=== PATIENT | male | born 1950 | race Caucasian/White ===

== ENCOUNTER → 2016-10-25 | Outpatient (CLI) | payer MEDICARE, OTHER ==
[2014-09-21 14:30] VITALS: BP 163/79
[~2016-10-25] MED LIST: ACAR50TA PO; AMIO200T2 PO; AMLO10TA2 PO; GABA600T2 PO; HYDR25TA9 PO; INSU100V13 SQ; LISI-334 PO; LISI-338 PO; LOVA40TA2 PO; METF500T4 PO; PIOG45TA19 PO; TAMS0.4C2 PO; WARF10TA PO; WARF2TAB7 PO
--- NOTE | 2016-10-25 09:41 | RAD ---
APPROVED REPORT Patient Location: OUT-PATIENT Risk Factors Hyperlipidemia Renal Artery Doppler Right Renal Artery Left Renal Arter y Proximal 60.6/19.3 cm/secProximal 58.7/12.7 cm/sec Mid 69.7/20.9 cm/secMid 66.0/18.0 cm/sec Distal 55.3/18.3 cm/secDistal 43.7/15.3 cm/sec Renal/Aorta Ratio 0.80Renal/Aorta Ratio 0.70 Prox. Resistive Index 0.68Prox. Resistive Index 0.78 Mid Resistive Index 0.70Mid Resistive Index 0.73 Distal Resistive Index 0.67Distal Resistive Index 0.65 Renal Measurements RightLeft Kidney Lqiwej89.3 cm cmKidney Ytyzcb18.3 cm cm Right Additional FindingsLeft Additional Findings Aortic Doppler VelocityWaveform Proximal Aorta 68.2 cm/sec Mid. Aorta 91.5 cm/sec Distal Aorta 91.5 cm/sec Findings On grayscale images of the abdominal aorta there is mild anthracotic plaque without any critical sten osis on limited imaging. Spectral waveforms do not demonstrate any obvious evidence of velocity acce leration. The right kidney on grayscale images measures to be at the upper limits of normal measuring approxima tely 11.3 cm in length. Spectral waveforms in the right renal artery are limited due to suboptimal i maging but do not show any obvious evidence of stenosis. Resistive indices are also within normal li mits. The left kidney appears to be mildly hypertrophied measuring approximately 12.3 cm. Bilateral cortical structures appear to be hypertrophied. The bilateral renal veins demonstrate normal spectral waveforms without any obvious abnormalities not ed. Critical Notification Critical Value: No <Conclusion> No evidence of renal artery stenosis. Suspect medical renal disease with bilateral cortical hypertrophy, clinical correlation recommended.
== END | disposition home or self-care (01) ==
LOC: US 07:23
PROVIDERS: ATTEND Internal Medicine Cardiovascular Disease
DX: E78.5 Hyperlipidemia, unspecified (principal); I70.0 Atherosclerosis of aorta; I25.10 Atherosclerotic heart disease of native coronary artery without angina pectoris; N28.81 Hypertrophy of kidney
CPT/HCPCS: 93975

== ENCOUNTER → 2016-11-07 | Outpatient (CLI) | payer MEDICARE, OTHER ==
[2014-09-21 14:30] VITALS: BP 163/79
[2016-11-12 11:15] LABS: ALDOSTERONE 11.4 ng/dL (0.0-30.0)
== END | disposition home or self-care (01) ==
LOC: LAB 10:02
PROVIDERS: ATTEND Internal Medicine Cardiovascular Disease
DX: I10 Essential (primary) hypertension (principal)
CPT/HCPCS: 36415; 82088; 84244

== ENCOUNTER 2017-01-17 03:18 | Observation (INO) | payer MEDICARE, OTHER ==
[~2017-01-17] VITALS: Ht 182.9 cm; Wt 93.4 kg
[2017-01-17 03:47] LABS: BASO % 1 % (0-3); EOS % 3 % (0-3); HEMATOCRIT 41.6 % (39.0-53.0); HEMOGLOBIN 13.7 g/dL (13.0-17.5); LYMPH # 1.4 x10^3/uL (1.0-4.8); LYMPH % 27 % (24-48); MEAN CORPUSCULAR HEMOGLOBIN 29 pg (25-35); MEAN CORPUSCULAR HGB CONC 33 g/dL (31-37); MEAN CORPUSCULAR VOLUME 89 fL (79-100); MONO % 9 % (0-9); NEUT % 61 % (31-73); PLATELET COUNT 182 x10^3/uL (140-400); RED BLOOD COUNT 4.69 x10^6/uL (4.30-5.70); RED CELL DISTRIBUTION WIDTH 13.7 % (11.5-14.5); WHITE BLOOD COUNT 5.1 x10^3/uL (4.0-11.0)
[2017-01-17 04:00] LABS: CALCIUM 9.6 mg/dL (8.5-10.1); GFR 74.8; POTASSIUM 3.7 mmol/L (3.5-5.1)
[2017-01-17] MEDS ORDERED: ASPIRIN CHEWABLE 81 MG TABLET. PO ONE (04:00)
[2017-01-17 04:06] LABS: DIRECT BILIRUBIN 0.1 mg/dL (0.0-0.2); TOTAL BILIRUBIN 0.4 mg/dL (0.2-1.0); TOTAL PROTEIN 7.4 g/dL (6.4-8.2)
--- NOTE | 2017-01-17 04:13 | PHYS DOC ---
Past Medical History Past Medical History: A-Fib, Diabetes-Type II Past Surgical History: No Surgical History Alcohol Use: None Drug Use: None Adult General Chief Complaint Chief Complaint: CHEST PAIN HPI HPI 66-year-old male presenting to the emergency department with chest pain. The pain is on the right anterior part of his chest. It started approximately 12 hours ago. It is a sharp shooting crampy pain. It is moderate nonradiating and without alleviating factors. He has a history of hypertension. He denies shortness of breath. Review of systems is negative for abdominal pain nausea vomiting. He denies diaphoresis cough fever or chills. All other review of systems is negative unless otherwise noted in history of present illness. Review of Systems Review of Systems SEE ABOVE. Current Medications Current Medications Current Medications Medications (Trade) Dose Ordered Sig/Meme Start Time Stop Time Status Last Admin Dose Admin Aspirin (Children'S Aspirin) 324 mg 1X ONCE 01/17/17 04:00 01/17/17 04:01 DC Allergies Allergies Allergies Coded Allergies Type Severity Reaction Last Updated Verified No Known Drug Allergies 09/21/14 No Physical Exam Physical Exam Constitutional: Well developed, well nourished, no acute distress, non-toxic appearance. HENT: Normocephalic, atraumatic, bilateral external ears normal, oropharynx moist, no oral exudates, nose normal. [] Eyes: PERRLA, EOMI, conjunctiva normal, no discharge. Neck: Normal range of motion, no tenderness, supple, no stridor. [] Cardiovascular:Heart rate regular rhythm, no murmur Lungs & Thorax: Bilateral breath sounds clear to auscultation [] Abdomen: Bowel sounds normal, soft, no tenderness, no masses, no pulsatile masses. [] Skin: Warm, dry, no erythema, no rash. [] Back: No tenderness, no CVA tenderness. [] Extremities: No tenderness, no cyanosis, no clubbing, ROM intact, no edema. Neurologic: Alert and oriented X 3, normal motor function, normal sensory function, no focal deficits noted. Psychologic: Affect normal, judgement normal, mood normal. [] Current Patient Data Vital Signs Vital Signs Date Time Temp Pulse Resp B/P Pulse Ox O2 Delivery O2 Flow Rate FiO2 01/17/17 03:20 97.0 82 20 197/88 99 Room Air 97.0 Lab Values Laboratory Tests Test 01/17/17 03:30 White Blood Count 5.1x10^3/uL (4.0-11.0) Red Blood Count 4.69x10^6/uL (4.30-5.70) Hemoglobin 13.7g/dL (13.0-17.5) Hematocrit 41.6% (39.0-53.0) Mean Corpuscular Volume 89fL (79-100) Mean Corpuscular Hemoglobin 29pg (25-35) Mean Corpuscular Hemoglobin Concent 33g/dL (31-37) Red Cell Distribution Width 13.7% (11.5-14.5) Platelet Count 182x10^3/uL (140-400) Neutrophils (%) (Auto) 61% (31-73) Lymphocytes (%) (Auto) 27% (24-48) Monocytes (%) (Auto) 9% (0-9) Eosinophils (%) (Auto) 3% (0-3) Basophils (%) (Auto) 1% (0-3) Neutrophils # (Auto) 3.1x10^3uL (1.8-7.7) Lymphocytes # (Auto) 1.4x10^3/uL (1.0-4.8) Monocytes # (Auto) 0.5x10^3/uL (0.0-1.1) Eosinophils # (Auto) 0.1x10^3/uL (0.0-0.7) Basophils # (Auto) 0.0x10^3/uL (0.0-0.2) Sodium Level 142mmol/L (136-145) Potassium Level 3.7mmol/L (3.5-5.1) Chloride Level 105mmol/L (98-107) Carbon Dioxide Level 27mmol/L (21-32) Anion Gap 10 (6-14) Blood Urea Nitrogen 15mg/dL (8-26) Creatinine 1.0mg/dL (0.7-1.3) Estimated GFR (Cockcroft-Gault) 74.8 Glucose Level 130mg/dL (70-99) H Calcium Level 9.6mg/dL (8.5-10.1) Total Bilirubin 0.4mg/dL (0.2-1.0) Direct Bilirubin 0.1mg/dL (0.0-0.2) Aspartate Amino Transferase (AST) 25U/L (15-37) Alanine Aminotransferase (ALT) 21U/L (16-63) Alkaline Phosphatase 75U/L (46-116) Troponin I Quantitative < 0.017ng/mL (0.000-0.055) UL-Amn-D-Type Natriuretic Peptide 650pg/mL (0-124) H Total Protein 7.4g/dL (6.4-8.2) Albumin 4.0g/dL (3.4-5.0) Lipase 118U/L (73-393) Laboratory Tests 01/17/17 03:30 Laboratory Tests 01/17/17 03:30 EKG EKG [] EKG shows irregularly irregular rhythm with a regular rate. Cycl[place] is leftward. ST segments are congruent. Intervals are within normal limits. Radiology/Procedures Radiology/Procedures [] Chest x-ray shows no obvious infiltrate or pneumothorax. Course & Med Decision Making Course & Med Decision Making Pertinent Labs and Imaging studies reviewed. (See chart for details) [] 66-year-old male presenting to the emergency department today with chest pain. EKG shows ST segments are congruent. Vital signs show afebrile. Regular heart rate. Patient's blood pressure is elevated. Pertinent physical exam shows a normal physical exam. X-ray unremarkable. Blood work obtained. Initial workup unremarkable. The patient was then admitted to our hospital for further evaluation workup and care. Cardiology consultation was placed. Dragon Disclaimer Dragon Disclaimer This electronic medical record was generated, in whole or in part, using a voice recognition dictation system. Departure Departure Impression: Primary Impression: Chest pain Disposition: ADMITTED INPATIENT Admitting Physician: Po Aranda Condition: STABLE Referrals: Lacy ARANDA MD (PCP) KIERAN OLIVAREZ MD Jan 17, 2017 04:13
[2017-01-17] MEDS ORDERED: NITROGLYCERIN SUBLINGUAL 0.4 MG BOTTLE OF 25. SL PRN (04:30)
[2017-01-17] MEDS ORDERED: ONDANSETRON PF 4 MG/2 ML VIAL. IV PRN (04:30)
[2017-01-17] MEDS ORDERED: hydrALAZINE 20 MG/ML VIAL. IVP ONE (05:00)
--- NOTE | 2017-01-17 06:36 | EKG ---
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
[2017-01-17 06:38] VITALS: BP 136/80
[2017-01-17 07:00] VITALS: BP 136/76
--- NOTE | 2017-01-17 07:21 | RAD ---
EXAM: Chest, single view. HISTORY: Chest pain. COMPARISON: None. FINDINGS: A frontal view of the chest is obtained. There is no infiltrate, effusion or pneumothorax. The heart is normal in size. IMPRESSION: No acute pulmonary finding.
[2017-01-17] MEDS ORDERED: LISI40TA PO (07:53)
[2017-01-17] MEDS ORDERED: HYDR100T24 PO (07:53)
[2017-01-17] MEDS ORDERED: WARF4TAB PO (07:53)
[2017-01-17] MEDS ORDERED: GABA-586 PO (07:53)
[2017-01-17] MEDS ORDERED: CHOL10003 PO (07:53)
--- NOTE | 2017-01-17 08:45 | PDOC2 ---
EDGARD PERKINS AVIONICS SAFETY INSPECTOR 01/17/17 0845: CARDIAC CONSULT DATE OF CONSULT Date of Consult DATE: 01/17/17 TIME: 08:33 REASON FOR CONSULT Reason for Consult: chest pain rule out REFERRING PHYSICIAN Referring Physician: Marianela SOURCE Source: Chart review, Patient HISTORY OF PRESENT ILLNESS HISTORY OF PRESENT ILLNESS This is a pleasant 66 yo male admitted for complains of chest pain. Reports of right lower chest pain throbbing and nagging in behavior and exacerbated by palpation. With this ti made it a little hard to take deep breath. There was some discomfort when I pressed on his RUQ but mainly points to right lower rib cage area. There was no associated SOA, RIVERO, no intolerance with activity and he actually walk using the treadmill for 2 miles almost everyday without difficulty. Denies any palpitations, nausea, dizziness and verbalized compliance with his medications. Denies any falls, recent injury, or frequent heartburn but he did work on his boat on Saturday and was tugging on the cables for his boat which by tension weighs about 100 pounds. His discomfort started Saturday and intensified Saturday which made him go to ED. right cp sharp PAST MEDICAL HISTORY Cardiovascular: AFIB (with cardioversion 2013), HTN, Hyperlipidemia, Other ( bradycardia) Pulmonary: Other (SHANA with CPAP) CENTRAL NERVOUS SYSTEM: Periperal neuropathy, TIA GI: No pertinent hx Heme/Onc: No pertinent hx Hepatobiliary: No pertinent hx Psych: No pertinent hx Musculoskeletal: Osteoarthritis Renal/: Chronic renal insuff (CKD2), Benign prostatic enlarg., Other (ED) Endocrine: Diabetes (2) PAST SURGICAL HISTORY Past Surgical History: No pertinent history FAMILY HISTORY Family History: Other (AFIB- Father, uncle, and brothers) SOCIAL HISTORY Smoke: No (quit) ALCOHOL: none Drugs: None Lives: with Family CURRENT MEDICATIONS CURRENT MEDICATIONS Current Medications Medications (Trade) Dose Ordered Sig/Meme Route PRN Reason Start Time Stop Time Status Last Admin Dose Admin Aspirin (Children'S Aspirin) 324 mg 1X ONCE PO 01/17/17 04:00 01/17/17 04:01 DC 01/17/17 05:25 Nitroglycerin (Nitrostat) 0.4 mg PRN Q5MIN PRN SL CHEST PAIN 01/17/17 04:30 01/18/17 04:29 01/17/17 05:25 ALLERGIES ALLERGIES: Coded Allergies: No Known Drug Allergies (Unverified , 09/21/14) ROS Review of System 14 point ROS evaluated with pertinent positives noted per HPI PHYSICAL EXAM General: Alert, Oriented X3, Cooperative, No acute distress HEENT: Atraumatic, Mucous membr. moist/pink Lungs: Clear to auscultation, Normal air movement Heart: Normal S1, Normal S2, Other (2/6 systolic murmur to LLS Border) Abdomen: Soft, Other (RUQ tenderness; right lower rib cage pain with palpation) Extremities: No cyanosis, No edema Skin: No breakdown, No significant lesion Neuro: Normal speech, Sensation intact Psych/Mental Status: Mental status NL, Mood NL MUSCULOSKELETAL: Osteoarthritic changes both hands VITALS VITALS Vital Signs Date Time Temp Pulse Resp B/P Pulse Ox O2 Delivery O2 Flow Rate FiO2 01/17/17 07:00 97.5 100 18 136/76 97 Room Air 97.5 LABS Lab: Laboratory Tests Test 01/17/17 03:30 White Blood Count 5.1x10^3/uL (4.0-11.0) Red Blood Count 4.69x10^6/uL (4.30-5.70) Hemoglobin 13.7g/dL (13.0-17.5) Hematocrit 41.6% (39.0-53.0) Mean Corpuscular Volume 89fL (79-100) Mean Corpuscular Hemoglobin 29pg (25-35) Mean Corpuscular Hemoglobin Concent 33g/dL (31-37) Red Cell Distribution Width 13.7% (11.5-14.5) Platelet Count 182x10^3/uL (140-400) Neutrophils (%) (Auto) 61% (31-73) Lymphocytes (%) (Auto) 27% (24-48) Monocytes (%) (Auto) 9% (0-9) Eosinophils (%) (Auto) 3% (0-3) Basophils (%) (Auto) 1% (0-3) Neutrophils # (Auto) 3.1x10^3uL (1.8-7.7) Lymphocytes # (Auto) 1.4x10^3/uL (1.0-4.8) Monocytes # (Auto) 0.5x10^3/uL (0.0-1.1) Eosinophils # (Auto) 0.1x10^3/uL (0.0-0.7) Basophils # (Auto) 0.0x10^3/uL (0.0-0.2) Sodium Level 142mmol/L (136-145) Potassium Level 3.7mmol/L (3.5-5.1) Chloride Level 105mmol/L (98-107) Carbon Dioxide Level 27mmol/L (21-32) Anion Gap 10 (6-14) Blood Urea Nitrogen 15mg/dL (8-26) Creatinine 1.0mg/dL (0.7-1.3) Estimated GFR (Cockcroft-Gault) 74.8 Glucose Level 130mg/dL (70-99) Calcium Level 9.6mg/dL (8.5-10.1) Total Bilirubin 0.4mg/dL (0.2-1.0) Direct Bilirubin 0.1mg/dL (0.0-0.2) Aspartate Amino Transf (AST/SGOT) 25U/L (15-37) Alanine Aminotransferase (ALT/SGPT) 21U/L (16-63) Alkaline Phosphatase 75U/L (46-116) Troponin I Quantitative < 0.017ng/mL (0.000-0.055) RU-Myu-I-Type Natriuretic Peptide 650pg/mL (0-124) Total Protein 7.4g/dL (6.4-8.2) Albumin 4.0g/dL (3.4-5.0) Lipase 118U/L (73-393) STRESS TEST STRESS TEST Conclusion 1. No evidence of significant ischemia or previous smoker infarction appreciated. 2. Ejection fraction calculated to be 64% with normal wall motion on gated SPECT images. 3. Normal nuclear imaging scan. DATE: 08/20/14 1443 ASSESSMENT/PLAN ASSESSMENT/PLAN 1. Atypical CP: Reproducible. Troponin series normal. EKG AFIB no acute changes.. Doubt ACS, likely MSK vs GI. Prior 100 lb pulling of boat cable. 2. Chronic AFIB cardioversion in the past 2013. Refused ablation before. Intolerance to rate controlling medications due to bradycardia. Currently rate controlled. 3. Accelerated HTN: now controlled, received x1 NTG in ED 4. HLP: on pravastatin at home 5. DM2 with insulin therapy controlled last A1C 6.1 6. SHANA/CPAP 7. Chronic anticoagulation with coumadin 8. CKD2 Recommendations 1. TTE today 2. GB sono pending per PCP 3. Resume secondary prevention measures. 4. OAC per PCP 5. No AV archie blocking agents due to rate intolerance. Problems: ROMELIA ROACH MD 01/18/17 0745: CARDIAC CONSULT ALLERGIES ALLERGIES: Coded Allergies: No Known Drug Allergies (Unverified , 09/21/14) ASSESSMENT/PLAN ASSESSMENT/PLAN Patient seen and examined 01/17/17. Agree with SYSTEMS SOFTWARE MANAGER's assessment and plan. Chest pain atypical, reproducible to palpation and most probably musculoskeletal. Myocardial infarction ruled out. 2-D echo showed normal LV systolic function without any wall motion abnormalities. Chest pain most probably GI in etiology. Permanent atrial fibrillation rate controlled. Blood pressure better controlled since admission. Continue current medical regimen. Thank you for your consultation. Problems: EDGARD PERKINS APRN Jan 17, 2017 08:45 ROMELIA ROACH MD Jan 18, 2017 07:45
[2017-01-17] MEDS ORDERED: PRAV40TA2 PO (09:26)
--- NOTE | 2017-01-17 09:32 | PDOC ---
PROGRESS NOTES Subjective Subjective Patient reports some mild R UQ pain persists, not as bad as at admission. Objective Objective Vital Signs Date Time Temp Pulse Resp B/P Pulse Ox O2 Delivery O2 Flow Rate FiO2 01/17/17 07:00 97.5 100 18 136/76 97 Room Air 97.5 Physical Exam Abdomen: Normal bowel sounds, Soft, Other (mild R UQ TTP without guarding or rebound) Heart: Other (irregularly irregular) Extremities: No edema General: Alert, Oriented X3, No acute distress Lungs: Clear to auscultation, Other (mild TTP over right anterior lower chest wall) Assessment Assessment Problems Medical Problems: (1) Chest pain Status: Acute Plan Plan of Care 1. Atypical chest pain - patient reports his pain has consistently been in the R UQ. Patient without history of CAD, apparently had normal stress test in 2013. Exercises regularly without chest pains. Will order abdominal U/S. Cardiology has also been consulted. 2. chronic afib - stable, INR pending. Continue meds as per Cardiology. 3. HTN - patient reports this has recently been fairly well controlled with his present meds. BP was quite elevated in ER, much better now. Resume home meds and follow. 4. DM2 - well controlled with recent A1C of 6.1 Continue ADA diet and home meds. Comment Review of Relevant I have reviewed the following items jammie (where applicable) has been applied. Labs Laboratory Tests Test 01/17/17 03:30 White Blood Count 5.1x10^3/uL (4.0-11.0) Red Blood Count 4.69x10^6/uL (4.30-5.70) Hemoglobin 13.7g/dL (13.0-17.5) Hematocrit 41.6% (39.0-53.0) Mean Corpuscular Volume 89fL (79-100) Mean Corpuscular Hemoglobin 29pg (25-35) Mean Corpuscular Hemoglobin Concent 33g/dL (31-37) Red Cell Distribution Width 13.7% (11.5-14.5) Platelet Count 182x10^3/uL (140-400) Neutrophils (%) (Auto) 61% (31-73) Lymphocytes (%) (Auto) 27% (24-48) Monocytes (%) (Auto) 9% (0-9) Eosinophils (%) (Auto) 3% (0-3) Basophils (%) (Auto) 1% (0-3) Neutrophils # (Auto) 3.1x10^3uL (1.8-7.7) Lymphocytes # (Auto) 1.4x10^3/uL (1.0-4.8) Monocytes # (Auto) 0.5x10^3/uL (0.0-1.1) Eosinophils # (Auto) 0.1x10^3/uL (0.0-0.7) Basophils # (Auto) 0.0x10^3/uL (0.0-0.2) Sodium Level 142mmol/L (136-145) Potassium Level 3.7mmol/L (3.5-5.1) Chloride Level 105mmol/L (98-107) Carbon Dioxide Level 27mmol/L (21-32) Anion Gap 10 (6-14) Blood Urea Nitrogen 15mg/dL (8-26) Creatinine 1.0mg/dL (0.7-1.3) Estimated GFR (Cockcroft-Gault) 74.8 Glucose Level 130mg/dL (70-99) Calcium Level 9.6mg/dL (8.5-10.1) Total Bilirubin 0.4mg/dL (0.2-1.0) Direct Bilirubin 0.1mg/dL (0.0-0.2) Aspartate Amino Transf (AST/SGOT) 25U/L (15-37) Alanine Aminotransferase (ALT/SGPT) 21U/L (16-63) Alkaline Phosphatase 75U/L (46-116) Troponin I Quantitative < 0.017ng/mL (0.000-0.055) KQ-Udf-I-Type Natriuretic Peptide 650pg/mL (0-124) Total Protein 7.4g/dL (6.4-8.2) Albumin 4.0g/dL (3.4-5.0) Lipase 118U/L (73-393) Laboratory Tests Test 01/17/17 03:30 White Blood Count 5.1x10^3/uL (4.0-11.0) Red Blood Count 4.69x10^6/uL (4.30-5.70) Hemoglobin 13.7g/dL (13.0-17.5) Hematocrit 41.6% (39.0-53.0) Mean Corpuscular Volume 89fL (79-100) Mean Corpuscular Hemoglobin 29pg (25-35) Mean Corpuscular Hemoglobin Concent 33g/dL (31-37) Red Cell Distribution Width 13.7% (11.5-14.5) Platelet Count 182x10^3/uL (140-400) Neutrophils (%) (Auto) 61% (31-73) Lymphocytes (%) (Auto) 27% (24-48) Monocytes (%) (Auto) 9% (0-9) Eosinophils (%) (Auto) 3% (0-3) Basophils (%) (Auto) 1% (0-3) Neutrophils # (Auto) 3.1x10^3uL (1.8-7.7) Lymphocytes # (Auto) 1.4x10^3/uL (1.0-4.8) Monocytes # (Auto) 0.5x10^3/uL (0.0-1.1) Eosinophils # (Auto) 0.1x10^3/uL (0.0-0.7) Basophils # (Auto) 0.0x10^3/uL (0.0-0.2) Sodium Level 142mmol/L (136-145) Potassium Level 3.7mmol/L (3.5-5.1) Chloride Level 105mmol/L (98-107) Carbon Dioxide Level 27mmol/L (21-32) Anion Gap 10 (6-14) Blood Urea Nitrogen 15mg/dL (8-26) Creatinine 1.0mg/dL (0.7-1.3) Estimated GFR (Cockcroft-Gault) 74.8 Glucose Level 130mg/dL (70-99) Calcium Level 9.6mg/dL (8.5-10.1) Total Bilirubin 0.4mg/dL (0.2-1.0) Direct Bilirubin 0.1mg/dL (0.0-0.2) Aspartate Amino Transf (AST/SGOT) 25U/L (15-37) Alanine Aminotransferase (ALT/SGPT) 21U/L (16-63) Alkaline Phosphatase 75U/L (46-116) Troponin I Quantitative < 0.017ng/mL (0.000-0.055) HS-Dsy-H-Type Natriuretic Peptide 650pg/mL (0-124) Total Protein 7.4g/dL (6.4-8.2) Albumin 4.0g/dL (3.4-5.0) Lipase 118U/L (73-393) Medications Current Medications Aspirin (Children'S Aspirin) 324 mg 1X ONCE PO Last administered on 01/17/17 05:25; Start 01/17/17 at 04:00; Stop 01/17/17 at 04:01; Status DC Ondansetron HCl (Zofran) 4 mg PRN Q8HRS PRN IV NAUSEA/VOMITING; Start 01/17/17 at 04:30; Stop 01/18/17 at 04:29 Morphine Sulfate 2 mg PRN Q2HR PRN IV SEVERE PAIN; Start 01/17/17 at 04:30; Stop 01/18/17 at 04:29 Nitroglycerin (Nitrostat) 0.4 mg PRN Q5MIN PRN SL CHEST PAIN Last administered on 01/17/17 05:25; Start 01/17/17 at 04:30; Stop 01/18/17 at 04:29 Hydralazine HCl (Apresoline) 10 mg 1X ONCE IVP ; Start 01/17/17 at 05:00; Stop 01/17/17 at 05:01; Status DC Active Scripts Active Pravastatin Sodium 40 Mg Tablet 1 Tab PO QHS Reported Vitamin D3 (Cholecalciferol (Vitamin D3)) 1,000 Unit Tablet 1,000 Unit PO Hydralazine Hcl 100 Mg Tablet 1 Tab PO TID Gabapentin 300 Mg Capsule 300 Mg PO TID Coumadin (Warfarin Sodium) 4 Mg Tablet 2 Tab PO DAILY Lisinopril 40 Mg Tablet 1 Tab PO DAILY Acarbose 50 Mg Tablet 50 Mg PO TIDBFRMEAL Levemir (Insulin Detemir) 100 Unit/1 Ml Vial 30 Unit SQ HS Tamsulosin Hcl 0.4 Mg Cap.er.24h 0.4 Mg PO HS Metformin Hcl 500 Mg Tablet 500 Mg PO TIDWMEALS Amlodipine Besylate 10 Mg Tablet 10 Mg PO DAILY Vitals/I & O Vital Sign - Last 24 Hours 01/17/17 01/17/17 01/17/17 01/17/17 03:20 03:22 03:42 04:02 Temp 97.0 97.0 Pulse 82 71 82 71 Resp 20 20 20 20 B/P 197/88 197/98 186/107 161/91 Pulse Ox 99 98 98 96 O2 Delivery Room Air Room Air Room Air Room Air 01/17/17 01/17/17 01/17/17 01/17/17 04:22 04:42 05:00 05:02 Pulse 77 71 73 73 Resp 20 20 20 B/P 160/101 174/103 136/80 166/99 Pulse Ox 95 95 95 O2 Delivery Room Air Room Air Room Air 01/17/17 01/17/17 01/17/17 01/17/17 05:22 05:25 05:32 06:10 Pulse 52 61 73 Resp 20 20 B/P 175/101 175/101 136/80 Pulse Ox 96 94 O2 Delivery Room Air Room Air Room Air 01/17/17 01/17/17 06:38 07:00 Temp 97.0 97.5 97.0 97.5 Pulse 73 100 Resp 20 18 B/P 136/80 136/76 Pulse Ox 94 97 O2 Delivery Room Air Room Air NILAY MACARIO MD Jan 17, 2017 09:32
[2017-01-17 10:44] LABS: INR 1.9 (0.8-1.1); PROTHROMBIN TIME PATIENT 20.9 SEC (11.7-14.0)
[2017-01-17 11:00] VITALS: BP 179/96
--- NOTE | 2017-01-17 11:01 | HP ---
ADMIT DATE: 01/17/2017 CHIEF COMPLAINT: Right-sided chest pain. HISTORY OF PRESENT ILLNESS: The patient is a 66-year-old male with a history of chronic atrial fibrillation who presented to the Emergency Room with the above complaint. He reported some mild pain in the area for several days previously. However, on the night of admission, it became much more severe. It was a sharp pain and there was some shortness of breath associated with it. He was unable to sleep due to his discomfort. When he presented to the Emergency Room, he was found to have an initial blood pressure of 197/88. EKG showed the atrial fibrillation, but no acute ischemic changes. Initial troponin was within normal limits and the patient was admitted for further treatment. PAST MEDICAL HISTORY: Chronic atrial fibrillation, hypertension, diabetes mellitus type 2, hyperlipidemia, obstructive sleep apnea on CPAP and BPH. PAST SURGICAL HISTORY: None. ALLERGIES: The patient has no known drug allergies. HOME MEDICATIONS: Acarbose 50 mg t.i.d. a.c., amlodipine 10 mg daily, vitamin D3 1000 international units daily, gabapentin 300 mg at bedtime, hydralazine 100 mg t.i.d., Levemir insulin 30 units at bedtime, lisinopril 40 mg daily, metformin 500 mg t.i.d., pravastatin 40 mg at bedtime, Flomax 0.4 mg daily and Coumadin 4 mg tablets 2 tablets daily. FAMILY HISTORY: Noncontributory. SOCIAL HISTORY: The patient is and lives at home with his . He is retired. He does not smoke cigarettes. REVIEW OF SYSTEMS: The patient states that he has been feeling well recently. He denies fever or chills. He denies cough or shortness of air. He denies other episodes of chest pain. He reports that he was working on his boat recently and may have strained his muscles with this. He exercises almost daily and denies any chest pain with this. He denies epigastric or lower abdominal pain or problems with his bowels. He is very compliant with his medications, taking them all as advised. He denies recent low blood sugars. Recent A1c in our office was 6.1. PHYSICAL EXAMINATION: GENERAL: The patient is alert and oriented x 3, resting comfortably in bed in no acute distress. HEENT: PERRL, EOMI, sclerae clear. Oropharynx: Mucous membranes moist. NECK: Supple, without lymphadenopathy. CHEST: Clear to auscultation with normal respiratory effort and good breath sounds throughout. There is mild tenderness to palpation on the right anterior chest wall. CARDIOVASCULAR: Irregularly irregular, no murmur. ABDOMEN: Soft, normoactive bowel sounds are present. There is mild tenderness to palpation in the right upper quadrant. EXTREMITIES: Without edema. ASSESSMENT AND PLAN: 1. Atypical chest pain. This has improved from admission per the patient's report. The patient does not have a history of coronary artery disease and reports he had a normal stress test in 2013. He is also able to exercise regularly without chest pain. This makes a noncardiac origin of the present pain more likely. Cardiology has been consulted and will consider further evaluation if warranted. An abdominal ultrasound has been ordered to rule out the gallbladder as a source of pain. 2. Chronic atrial fibrillation. This is stable. An INR is pending. We will continue his present medications and adjust the Coumadin as indicated. 3. Hypertension. The patient reports this has been fairly well controlled with his present medications. His hydralazine was recently increased by Dr. Quach when his blood pressure was a little elevated at an office visit. We will continue his home medications and follow his response here. 4. Diabetes mellitus type 2. This is very well controlled. Continue ADA diet and home medications. NILAY MACARIO MD DR: ROSE MARIE/derrick JOB#: [id number] / [id number] PAULO
[2017-01-17] MEDS: ACARBOSE 50 MG TABLET PO SCH ×2 (11:30→16:30)
[2017-01-17] MEDS: AMLODIPINE BESYLATE 10 MG TABLET. PO SCH (12:48)
[2017-01-17] MEDS: METFORMIN 500 MG TABLET. PO SCH ×2 (12:49→17:30)
[2017-01-17] MEDS: HYDRALAZINE 50 MG TABLET PO SCH ×3 (12:49→20:56)
[2017-01-17] MEDS: CHOLECALCIFEROL (VITAMIN D3) 1,000 UNIT TABLET PO SCH (12:49)
[2017-01-17] MEDS: LISINOPRIL 40 MG TABLET. PO SCH (12:50)
[2017-01-17] MEDS ORDERED: NON FORMULARY ITEM (Hydralazine Hcl 1 TAB) PO SCH (14:00)
--- NOTE | 2017-01-17 14:26 | CARD ---
APPROVED REPORT EXAM: Two-dimensional and M-mode echocardiogram with Doppler and color Doppler. Other Information Quality : Average Rhythm : Atrial Fibrillation INDICATION Atrial Fibrillation Chest Pain 2D DIMENSIONS RVDd3.3 (2.9-3.5cm)Left Atrium(2D)4.1 (1.6-4.0cm) IVSd1.2 (0.7-1.1cm)Aortic Root(2D)3.3 (2.0-3.7cm) LVDd3.9 (3.9-5.9cm)LVOT Diameter2.2 (1.8-2.4cm) PWd1.2 (0.7-1.1cm)LVDs2.9 (2.5-4.0cm) FS (%) 25.6 %SV34.1 ml LVEF(%)51.0 (>50%) Aortic Valve AoV Peak Jose David.136.4cm/sAoV VTI26.7cm AO Peak GR.7.4mmHgLVOT Peak Jose David.103.4cm/s AO Mean GR.4mmHgAVA (VMAX)2.81cm2 ARNAV (VTI)3.37ad8JP P 1/2 [id number] Mitral Valve MV E Ynievbdd938.1cm/sMV E Peak Gr.6mmHg MV DECEL [id number] A Velocity0.4cm/s MV E Mean Gr.2mmHgMV XBJ11dx E/A Nniuu521.8MVA (PHT)3.58cm2 Tricuspid Valve TR P. Mobhqtkk597im/sRAP [id number] TR Peak Gr.17jjZeWVUK11tqKp LEFT VENTRICLE The left ventricle is normal size. There is borderline concentric left ventricular hypertrophy. Left ventricle systolic function is normal. The Ejection Fraction is 50-55%. There is normal LV segmental wall motion. Unable to assess diastolic function due to a-fib. RIGHT VENTRICLE The right ventricle is normal size. The right ventricular systolic function is normal. ATRIA The left atrium is borderline dilated. The right atrium size is normal. The interatrial septum is int act with no evidence for an atrial septal defect or patent foramen ovale as noted on 2-D or Doppler i maging. AORTIC VALVE The aortic valve is mildly sclerotic. The aortic valve is trileaflet. Doppler and Color Flow revealed trace to mild aortic regurgitation. There is no significant aortic valvular stenosis. MITRAL VALVE Mitral annular calcification is borderline. The mitral valve leaflets are calcified. There is no mitr al valve stenosis. Doppler and Color Flow revealed trace to mild mitral regurgitation. TRICUSPID VALVE The tricuspid valve is normal in structure and function. Doppler and Color Flow revealed mild tricusp id regurgitation. There is no tricuspid valve stenosis. PULMONIC VALVE The pulmonic valve is not well visualized. Doppler and Color Flow revealed trace pulmonic valvular re gurgitation. There is no pulmonic valvular stenosis. GREAT VESSELS The aortic root is normal in size. Pulmonary vein flow not well visualized. The IVC is normal in size and collapses >50% with inspiration. PERICARDIAL EFFUSION There is no evidence of significant pericardial effusion. Critical Notification Critical Value: No <Conclusion> Left ventricle systolic function is normal. The Ejection Fraction is 50-55%. There is normal LV segmental wall motion. The left atrium is borderline dilated. Trace to mild aortic regurgitation. Trace to mild mitral regurgitation. Mild tricuspid regurgitation. There is no evidence of significant pericardial effusion.
--- NOTE | 2017-01-17 14:37 | RAD ---
EXAM: Abdomen sonogram. HISTORY: Right upper quadrant pain. TECHNIQUE: Sonographic imaging of the abdomen was performed. COMPARISON: None. FINDINGS: The liver is normal in size. There is hepatic steatosis. No focal hepatic lesion is seen. There is an 8 mm nonmobile echogenic lesion along the gallbladder wall, likely a polyp. The common bile duct is dilated, measuring 8 mm. There is a positive sonographic Aragon sign. The right kidney measures 10.3 cm atab-mm-eunw and the left kidney measures 12.1 cm [id number]-us-[id number]. No solid or cystic renal lesion is seen. There is no hydronephrosis. The pancreas is unremarkable. The spleen is enlarged, measuring 15.6 cm. The aorta and inferior vena cava are unremarkable. The urinary bladder is distended, with a volume of 1534 mL. IMPRESSION: 1. Hepatic steatosis. 2. 8 mm nonmobile echogenic lesion along the gallbladder likely due to a polyp. Follow-up can be performed to confirm stability. 3. Positive sonographic Aragon's sign. There is no gallbladder wall thickening or pericholecystic fluid versus cholecystitis. However, there is mild common bile duct dilatation. Correlate with biliary laboratory values to exclude a distal obstructing process. 4. Distended urinary bladder with a volume of 1534 mL.
[2017-01-17 15:00] VITALS: BP 158/85
[2017-01-17] MEDS ORDERED: WARFARIN 4 MG TABLET. PO SCH (16:00)
--- NOTE | 2017-01-17 16:39 | PDOC2 ---
GI CONSULT Reason For Consult: Gallbladder management HPI: HPI: 66 y/o male admitted w/ chest pain. Reports RUQ dull ache beginning 01/15/17 w/ o precipitating events. It improved that evening, although it was at first difficult for him to fall asleep. The next evening, it recurred w/ some radiation into chest, prompting ER eval. Cardiac etiology ruled out. US showed hepatic steatosis, probably GB polyp, + Aragon's sign, mild CBD dilation. Pain has improved but is still nagging. Denies aggravating or alleviating factors. Perhaps had a little nausea at one point, but no vomiting. Also denies reflux/heartburn, dysphagia, diarrhea, constipation, melena, change in appetite, or weight loss. Believes normal colonoscopy ~5 years ago. No previous EGD. No NSAID use. Dr. Nevarez has been consulted and Dr. Quach has ordered MRCP. PMH: PMH: A Fib w/ h/o cardioversion on Warfarin, HTN, HLD, bradycardia, SHANA on CPAP, peripheral neuropathy, TIA, OA, CKD, BPH, ED, DM FH: Family History: Other (A Fib) Social History: Smoke: No (quit) ALCOHOL: none Drugs: None ROS: GEN: Denies fevers, chills, sweats HEENT: Denies blurred vision, sore throat CV: +chest pain RESP: Denies shortness of air, cough GI: Per HPI : Denies hematuria, dysuria ENDO: Denies weight changes NEURO: Denies confusion, dizziness MSK: Denies weakness, joint pain/swelling SKIN: Denies jaundice, pruritus VItals: Vitals: Vital Signs Date Time Temp Pulse Resp B/P Pulse Ox O2 Delivery O2 Flow Rate FiO2 01/17/17 15:00 98.3 80 18 158/85 95 Room Air 98.3 Labs: Labs: Laboratory Tests Test 01/17/17 03:30 01/17/17 10:00 01/17/17 12:46 White Blood Count 5.1x10^3/uL (4.0-11.0) Red Blood Count 4.69x10^6/uL (4.30-5.70) Hemoglobin 13.7g/dL (13.0-17.5) Hematocrit 41.6% (39.0-53.0) Mean Corpuscular Volume 89fL (79-100) Mean Corpuscular Hemoglobin 29pg (25-35) Mean Corpuscular Hemoglobin Concent 33g/dL (31-37) Red Cell Distribution Width 13.7% (11.5-14.5) Platelet Count 182x10^3/uL (140-400) Neutrophils (%) (Auto) 61% (31-73) Lymphocytes (%) (Auto) 27% (24-48) Monocytes (%) (Auto) 9% (0-9) Eosinophils (%) (Auto) 3% (0-3) Basophils (%) (Auto) 1% (0-3) Neutrophils # (Auto) 3.1x10^3uL (1.8-7.7) Lymphocytes # (Auto) 1.4x10^3/uL (1.0-4.8) Monocytes # (Auto) 0.5x10^3/uL (0.0-1.1) Eosinophils # (Auto) 0.1x10^3/uL (0.0-0.7) Basophils # (Auto) 0.0x10^3/uL (0.0-0.2) Sodium Level 142mmol/L (136-145) Potassium Level 3.7mmol/L (3.5-5.1) Chloride Level 105mmol/L (98-107) Carbon Dioxide Level 27mmol/L (21-32) Anion Gap 10 (6-14) Blood Urea Nitrogen 15mg/dL (8-26) Creatinine 1.0mg/dL (0.7-1.3) Estimated GFR (Cockcroft-Gault) 74.8 Glucose Level 130mg/dL (70-99) Calcium Level 9.6mg/dL (8.5-10.1) Total Bilirubin 0.4mg/dL (0.2-1.0) Direct Bilirubin 0.1mg/dL (0.0-0.2) Aspartate Amino Transf (AST/SGOT) 25U/L (15-37) Alanine Aminotransferase (ALT/SGPT) 21U/L (16-63) Alkaline Phosphatase 75U/L (46-116) Troponin I Quantitative < 0.017ng/mL (0.000-0.055) < 0.017ng/mL (0.000-0.055) QU-Mzn-B-Type Natriuretic Peptide 650pg/mL (0-124) Total Protein 7.4g/dL (6.4-8.2) Albumin 4.0g/dL (3.4-5.0) Lipase 118U/L (73-393) Prothrombin Time 20.9SEC (11.7-14.0) Prothromb Time International Ratio 1.9 (0.8-1.1) Glucose (Fingerstick) 115mg/dL (70-99) Allergies: Coded Allergies: No Known Drug Allergies (Unverified , 09/21/14) Medications: Current Medications Medications (Trade) Dose Ordered Sig/Meme Route PRN Reason Start Time Stop Time Status Last Admin Dose Admin Aspirin (Children'S Aspirin) 324 mg 1X ONCE PO 01/17/17 04:00 01/17/17 04:01 DC 01/17/17 05:25 Nitroglycerin (Nitrostat) 0.4 mg PRN Q5MIN PRN SL CHEST PAIN 01/17/17 04:30 01/18/17 04:29 01/17/17 05:25 Vitamin D (Vitamin D3) 1,000 unit DAILY PO 01/17/17 10:00 01/17/17 12:49 Lisinopril (Prinivil) 40 mg DAILY PO 01/17/17 10:00 01/17/17 12:50 Metformin HCl (Glucophage) 500 mg TIDWMEALS PO 01/17/17 12:00 01/17/17 12:49 Amlodipine Besylate (Norvasc) 10 mg DAILY PO 01/17/17 10:00 01/17/17 12:48 Hydralazine HCl (Apresoline) 100 mg TID PO 01/17/17 10:00 01/17/17 12:49 Warfarin Sodium (Coumadin Per Physician) 1 each PRN DAILY PRN MC SEE COMMENTS 01/17/17 11:00 01/17/17 11:10 Imaging: Imaging: CXR IMPRESSION: No acute pulmonary finding. Echocardiogram <Conclusion> Left ventricle systolic function is normal. The Ejection Fraction is 50-55%. There is normal LV segmental wall motion. The left atrium is borderline dilated. Trace to mild aortic regurgitation. Trace to mild mitral regurgitation. Mild tricuspid regurgitation. There is no evidence of significant pericardial effusion. Abd US IMPRESSION: 1. Hepatic steatosis. 2. 8 mm nonmobile echogenic lesion along the gallbladder likely due to a polyp. Follow-up can be performed to confirm stability. 3. Positive sonographic Aragon's sign. There is no gallbladder wall thickening or pericholecystic fluid versus cholecystitis. However, there is mild common bile duct dilatation. Correlate with biliary laboratory values to exclude a distal obstructing process. 4. Distended urinary bladder with a volume of 1534 mL. PE: GEN: NAD HEENT: Atraumatic, PERRL LUNGS: CTAB anteriorly HEART: RRR +murm ABD: NABS, S/ND, vague RUQ discomfort EXTREMITY: No edema SKIN: No rashes, no jaundice NEURO/PSYCH: A & O 3 A/P: A/P: RUQ pain - improved -onset 01/15 w/o precipitating events, no aggravating or alleviating factors Abnormal abd US -probably GB polyp, mild CBD dilation -MRCP ordered, sug consulted CRC screen -recalls previously normal colonoscopy Anti-coagulated w/ Warfarin -- D/w Dr. Oconnor. Await MRCP and surg recs. ELYSSA PLAZA Jan 17, 2017 16:39
--- NOTE | 2017-01-17 17:55 | PDOC2 ---
CONSULT Date of Consult Date of Consult DATE: 01/17/17 TIME: 17:50 Reason for Consult Reason for Consult: Abd pain and abnormal U/S Referring Physician Referring Physician: Identification/Chief Complaint Chief Complaint Right side chest and abdominal pain Source Source: Patient History of Present Illness Reason for Visit: 66 yo male admitted to the hospital with right side chest pain and known history of AFib. Cardiac workup negative but U/S RUQ showing polyp in gallbladder and positive Aragon's sign. Past Medical History Cardiovascular: AFIB (with cardioversion 2013), HTN, Hyperlipidemia, Other ( bradycardia) Pulmonary: Other (SHANA with CPAP) CENTRAL NERVOUS SYSTEM: Periperal neuropathy, TIA GI: No pertinent hx Heme/Onc: No pertinent hx Hepatobiliary: No pertinent hx Psych: No pertinent hx Musculoskeletal: Osteoarthritis Renal/: Chronic renal insuff (CKD2), Benign prostatic enlarg., Other (ED) Endocrine: Diabetes (2) Past Surgical History Past Surgical History: No pertinent history Family History Family History: Other (AFIB- Father, uncle, and brothers) Social History No (quit) ALCOHOL: none Drugs: None Lives: with Family Current Problem List Problem List Problems Medical Problems: (1) Chest pain Status: Acute Current Medications Current Medications Current Medications Aspirin (Children'S Aspirin) 324 mg 1X ONCE PO Last administered on 01/17/17 05:25; Start 01/17/17 at 04:00; Stop 01/17/17 at 04:01; Status DC Ondansetron HCl (Zofran) 4 mg PRN Q8HRS PRN IV NAUSEA/VOMITING; Start 01/17/17 at 04:30; Stop 01/18/17 at 04:29 Morphine Sulfate 2 mg PRN Q2HR PRN IV SEVERE PAIN; Start 01/17/17 at 04:30; Stop 01/18/17 at 04:29 Nitroglycerin (Nitrostat) 0.4 mg PRN Q5MIN PRN SL CHEST PAIN Last administered on 01/17/17 05:25; Start 01/17/17 at 04:30; Stop 01/18/17 at 04:29 Hydralazine HCl (Apresoline) 10 mg 1X ONCE IVP ; Start 01/17/17 at 05:00; Stop 01/17/17 at 05:01; Status DC Acarbose (Precose) 50 mg TIDBFRMEAL PO ; Start 01/17/17 at 11:30 Amlodipine Besylate (Norvasc) 10 mg DAILY PO ; Start 01/18/17 at 09:00; Stop at 09:00; Status DC Vitamin D (Vitamin D3) 1,000 unit DAILY PO Last administered on 01/17/17 12:49 ; Start 01/17/17 at 10:00 Gabapentin (Neurontin) 300 mg HS PO ; Start 01/17/17 at 21:00 Lisinopril (Prinivil) 40 mg DAILY PO Last administered on 01/17/17 12:50; Start 01/17/17 at 10:00 Metformin HCl (Glucophage) 500 mg TIDWMEALS PO Last administered on 01/17/17 17:30; Start 01/17/17 at 12:00 Tamsulosin HCl (Flomax) 0.4 mg HS PO ; Start 01/17/17 at 21:00 Warfarin Sodium (Coumadin) 8 mg DAILY16 PO ; Start 01/17/17 at 16:00; Stop 01/17 at 16:00; Status DC Non-Formulary Medication 1 tab TID PO ; Start 01/17/17 at 14:00; Stop 01/17/17 at 14:00; Status DC Insulin Detemir (Levemir) 30 units QHS SQ ; Start 01/17/17 at 21:00 Amlodipine Besylate (Norvasc) 10 mg DAILY PO Last administered on 01/17/17 12: 48; Start 01/17/17 at 10:00 Hydralazine HCl (Apresoline) 100 mg TID PO Last administered on 01/17/17 17:31 ; Start 01/17/17 at 10:00 Warfarin Sodium 1 each 1 each PRN DAILY PRN MC SEE COMMENTS Last administered on 01/17/17 11:10; Start 01/17/17 at 11:00 Cefazolin Sodium/ Dextrose (Ancef 2gm Premix) 50 ml @ 100 mls/hr 1X PREOP IV ; Start 01/18/17 at 07:00; Stop 01/18/17 at 18:00 Ondansetron HCl (Zofran) 0.4 mg PRN Q6HRS PRN IV NAUSEA/VOMITING; Start at 07:00; Stop 01/19/17 at 06:59 Fentanyl Citrate (Fentanyl 2ml Vial) 25 mcg PRN Q5MIN PRN IV MILD PAIN; Start 01/18/17 at 07:00; Stop 01/19/17 at 06:59 Fentanyl Citrate (Fentanyl 2ml Vial) 50 mcg PRN Q5MIN PRN IV MODERATE PAIN; Start 01/18/17 at 07:00; Stop 01/19/17 at 06:59 Morphine Sulfate 1 mg 1 mg PRN Q10MIN PRN IV SEVERE PAIN; Start 01/18/17 at 07: 00; Stop 01/19/17 at 06:59 Lactated Ringer's (Iv Lactated Ringers) 1,000 ml @ 30 mls/hr Q24H IV ; Start at 07:00; Stop 01/18/17 at 18:59 Lidocaine HCl 2 ml PRN 1X PRN ID PRIOR TO IV START; Start 01/18/17 at 07:00; Stop 01/19/17 at 06:59 Hydromorphone HCl (Dilaudid) 0.5 mg PRN Q10MIN PRN IV SEV PAIN, Second choice; Start 01/18/17 at 07:00; Stop 01/19/17 at 06:59 Prochlorperazine Edisylate (Compazine) 5 mg PACU PRN PRN IV NAUSEA, MRX1; Start 01/18/17 at 07:00; Stop 01/19/17 at 06:59 Active Scripts Active Pravastatin Sodium 40 Mg Tablet 1 Tab PO QHS Reported Vitamin D3 (Cholecalciferol (Vitamin D3)) 1,000 Unit Tablet 1,000 Unit PO Hydralazine Hcl 100 Mg Tablet 1 Tab PO TID Gabapentin 300 Mg Capsule 300 Mg PO TID Coumadin (Warfarin Sodium) 4 Mg Tablet 2 Tab PO DAILY Lisinopril 40 Mg Tablet 1 Tab PO DAILY Acarbose 50 Mg Tablet 50 Mg PO TIDBFRMEAL Levemir (Insulin Detemir) 100 Unit/1 Ml Vial 30 Unit SQ HS Tamsulosin Hcl 0.4 Mg Cap.er.24h 0.4 Mg PO HS Metformin Hcl 500 Mg Tablet 500 Mg PO TIDWMEALS Amlodipine Besylate 10 Mg Tablet 10 Mg PO DAILY Allergies Allergies: Coded Allergies: No Known Drug Allergies (Unverified , 09/21/14) ROS Gastrointestinal: Yes Abdominal Pain Physical Exam General: Alert, Oriented X3, Cooperative, mild distress HEENT: Atraumatic, PERRLA, EOMI Lungs: Clear to auscultation, Normal air movement Heart: Regular rate, No murmurs Abdomen: Normal bowel sounds, Soft, Other (TTP RUQ) Extremities: No clubbing, No cyanosis, No edema Skin: No significant lesion Neuro: Normal speech Psych/Mental Status: Mental status NL Vitals VITALS Vital Signs Date Time Temp Pulse Resp B/P Pulse Ox O2 Delivery O2 Flow Rate FiO2 01/17/17 17:31 80 158/85 01/17/17 15:00 98.3 18 95 Room Air 98.3 Labs Labs Laboratory Tests Test 01/17/17 03:30 01/17/17 10:00 01/17/17 12:46 01/17/17 16:20 White Blood Count 5.1x10^3/uL (4.0-11.0) Red Blood Count 4.69x10^6/uL (4.30-5.70) Hemoglobin 13.7g/dL (13.0-17.5) Hematocrit 41.6% (39.0-53.0) Mean Corpuscular Volume 89fL (79-100) Mean Corpuscular Hemoglobin 29pg (25-35) Mean Corpuscular Hemoglobin Concent 33g/dL (31-37) Red Cell Distribution Width 13.7% (11.5-14.5) Platelet Count 182x10^3/uL (140-400) Neutrophils (%) (Auto) 61% (31-73) Lymphocytes (%) (Auto) 27% (24-48) Monocytes (%) (Auto) 9% (0-9) Eosinophils (%) (Auto) 3% (0-3) Basophils (%) (Auto) 1% (0-3) Neutrophils # (Auto) 3.1x10^3uL (1.8-7.7) Lymphocytes # (Auto) 1.4x10^3/uL (1.0-4.8) Monocytes # (Auto) 0.5x10^3/uL (0.0-1.1) Eosinophils # (Auto) 0.1x10^3/uL (0.0-0.7) Basophils # (Auto) 0.0x10^3/uL (0.0-0.2) Sodium Level 142mmol/L (136-145) Potassium Level 3.7mmol/L (3.5-5.1) Chloride Level 105mmol/L (98-107) Carbon Dioxide Level 27mmol/L (21-32) Anion Gap 10 (6-14) Blood Urea Nitrogen 15mg/dL (8-26) Creatinine 1.0mg/dL (0.7-1.3) Estimated GFR (Cockcroft-Gault) 74.8 Glucose Level 130mg/dL (70-99) Calcium Level 9.6mg/dL (8.5-10.1) Total Bilirubin 0.4mg/dL (0.2-1.0) Direct Bilirubin 0.1mg/dL (0.0-0.2) Aspartate Amino Transf (AST/SGOT) 25U/L (15-37) Alanine Aminotransferase (ALT/SGPT) 21U/L (16-63) Alkaline Phosphatase 75U/L (46-116) Troponin I Quantitative < 0.017ng/mL (0.000-0.055) < 0.017ng/mL (0.000-0.055) < 0.017ng/mL (0.000-0.055) CI-Lsi-Z-Type Natriuretic Peptide 650pg/mL (0-124) Total Protein 7.4g/dL (6.4-8.2) Albumin 4.0g/dL (3.4-5.0) Lipase 118U/L (73-393) Prothrombin Time 20.9SEC (11.7-14.0) Prothromb Time International Ratio 1.9 (0.8-1.1) Glucose (Fingerstick) 115mg/dL (70-99) Test 01/17/17 16:37 Glucose (Fingerstick) 147mg/dL (70-99) Laboratory Tests Test 01/17/17 03:30 01/17/17 10:00 01/17/17 12:46 01/17/17 16:20 White Blood Count 5.1x10^3/uL (4.0-11.0) Red Blood Count 4.69x10^6/uL (4.30-5.70) Hemoglobin 13.7g/dL (13.0-17.5) Hematocrit 41.6% (39.0-53.0) Mean Corpuscular Volume 89fL (79-100) Mean Corpuscular Hemoglobin 29pg (25-35) Mean Corpuscular Hemoglobin Concent 33g/dL (31-37) Red Cell Distribution Width 13.7% (11.5-14.5) Platelet Count 182x10^3/uL (140-400) Neutrophils (%) (Auto) 61% (31-73) Lymphocytes (%) (Auto) 27% (24-48) Monocytes (%) (Auto) 9% (0-9) Eosinophils (%) (Auto) 3% (0-3) Basophils (%) (Auto) 1% (0-3) Neutrophils # (Auto) 3.1x10^3uL (1.8-7.7) Lymphocytes # (Auto) 1.4x10^3/uL (1.0-4.8) Monocytes # (Auto) 0.5x10^3/uL (0.0-1.1) Eosinophils # (Auto) 0.1x10^3/uL (0.0-0.7) Basophils # (Auto) 0.0x10^3/uL (0.0-0.2) Sodium Level 142mmol/L (136-145) Potassium Level 3.7mmol/L (3.5-5.1) Chloride Level 105mmol/L (98-107) Carbon Dioxide Level 27mmol/L (21-32) Anion Gap 10 (6-14) Blood Urea Nitrogen 15mg/dL (8-26) Creatinine 1.0mg/dL (0.7-1.3) Estimated GFR (Cockcroft-Gault) 74.8 Glucose Level 130mg/dL (70-99) Calcium Level 9.6mg/dL (8.5-10.1) Total Bilirubin 0.4mg/dL (0.2-1.0) Direct Bilirubin 0.1mg/dL (0.0-0.2) Aspartate Amino Transf (AST/SGOT) 25U/L (15-37) Alanine Aminotransferase (ALT/SGPT) 21U/L (16-63) Alkaline Phosphatase 75U/L (46-116) Troponin I Quantitative < 0.017ng/mL (0.000-0.055) < 0.017ng/mL (0.000-0.055) < 0.017ng/mL (0.000-0.055) LS-Nyh-M-Type Natriuretic Peptide 650pg/mL (0-124) Total Protein 7.4g/dL (6.4-8.2) Albumin 4.0g/dL (3.4-5.0) Lipase 118U/L (73-393) Prothrombin Time 20.9SEC (11.7-14.0) Prothromb Time International Ratio 1.9 (0.8-1.1) Glucose (Fingerstick) 115mg/dL (70-99) Test 01/17/17 16:37 Glucose (Fingerstick) 147mg/dL (70-99) Images Images as above in HPI Assessment/Plan Assessment/Plan RUQ abdominal pain with abnormal U/S- Plan L/S Tana in AM On coumadin INR 1.9 stopped coumadin with INR <2 will continue with surgery. RUBI WONG MD Jan 17, 2017 17:55
[2017-01-17 19:20] VITALS: BP 167/91
[2017-01-17] MEDS: MORPHINE SULFATE 2 MG/ML DISP.SYRIN. IV PRN ×2 (19:54→22:23)
[2017-01-17] MEDS: TAMSULOSIN 0.4 MG CAP.ER.24H. PO SCH (20:55)
[2017-01-17] MEDS: GABAPENTIN 300 MG CAPSULE. PO SCH (20:55)
[2017-01-17] MEDS: INSULIN DETEMIR 300 UNITS/3 ML INSULN.PEN. SQ SCH (21:00)
[2017-01-17 23:20] VITALS: BP 136/84
[2017-01-18 03:35] VITALS: BP 137/78
[2017-01-18 05:26] LABS: CALCIUM 8.8 mg/dL (8.5-10.1); CREATININE 0.9 mg/dL (0.7-1.3); GFR 84.4; POTASSIUM 3.8 mmol/L (3.5-5.1)
[2017-01-18 06:16] LABS: BASO % 1 % (0-3); EOS % 1 % (0-3); HEMATOCRIT 40.7 % (39.0-53.0); HEMOGLOBIN 13.6 g/dL (13.0-17.5); LYMPH % 14 % (24-48); MEAN CORPUSCULAR HEMOGLOBIN 29 pg (25-35); MEAN CORPUSCULAR HGB CONC 33 g/dL (31-37); MEAN CORPUSCULAR VOLUME 88 fL (79-100); MONO % 6 % (0-9); NEUT % 79 % (31-73); PLATELET COUNT 173 x10^3/uL (140-400); RED BLOOD COUNT 4.65 x10^6/uL (4.30-5.70); RED CELL DISTRIBUTION WIDTH 13.2 % (11.5-14.5); WHITE BLOOD COUNT 7.2 x10^3/uL (4.0-11.0)
[2017-01-18] MEDS ORDERED: LIDOCAINE 1% 1 ML SYRINGE. ID PRN (07:00)
[2017-01-18] MEDS: IV RINGERS,LACTATED 1000ML 1,000 ML IV SCH ×2 (07:00→09:24)
[2017-01-18] MEDS ORDERED: FENTANYL PF 100 MCG/2 ML VIAL. IV PRN ×2 (07:00)
[2017-01-18] MEDS ORDERED: CEFAZOLIN 2GM PREMIX 50 ML IV SCH (07:00)
[2017-01-18] MEDS ORDERED: ONDANSETRON PF 4 MG/2 ML VIAL. IV PRN (07:00)
[2017-01-18] MEDS ORDERED: HYDROMORPHONE 2 MG/ML VIAL. IV PRN (07:00)
[2017-01-18] MEDS ORDERED: PROCHLORPERAZINE 10 MG/2 ML VIAL. IV PRN (07:00)
[2017-01-18] MEDS ORDERED: MORPHINE SULFATE 2 MG/ML DISP.SYRIN. IV PRN (07:00)
[2017-01-18] MEDS: ACARBOSE 50 MG TABLET PO SCH ×3 (07:30→16:30)
[2017-01-18 07:35] LABS: INR 1.8 (0.8-1.1); PROTHROMBIN TIME PATIENT 19.7 SEC (11.7-14.0)
[2017-01-18] MEDS ORDERED: FENTANYL PF 100 MCG/2 ML VIAL. ONE (07:40)
[2017-01-18] MEDS ORDERED: DEXAMETHASONE SOD PHOS 20 MG/5 ML VIAL. ONE (07:41)
[2017-01-18] MEDS ORDERED: GLYCOPYRROLATE 1 MG/5 ML VIAL. ONE (07:41)
[2017-01-18] MEDS ORDERED: ISOFLURANE > 120 MINUTES. IH ONE (07:41)
[2017-01-18] MEDS ORDERED: LIDOCAINE 2% 100 MG/5 ML DISP.SYRIN. ONE ×2 (07:41→08:24)
[2017-01-18] MEDS ORDERED: ONDANSETRON PF 4 MG/2 ML VIAL. ONE (07:41)
[2017-01-18] MEDS ORDERED: ROCURONIUM 50 MG/5 ML VIAL. ONE (07:42)
[2017-01-18] MEDS ORDERED: NEOSTIGMINE METHYLSULFATE 5 MG/5 ML SYRINGE. ONE (07:42)
[2017-01-18] MEDS: METFORMIN 500 MG TABLET. PO SCH ×3 (08:00→18:09)
[2017-01-18] MEDS ORDERED: BUPIVACAINE-EPI 0.25%-1:200000 MPF 30 ML VIAL. INJ ONE (08:11)
[2017-01-18] MEDS ORDERED: IOHEXOL 300 MG/ML 50 ML VIAL. IJ ONE (08:11)
[2017-01-18] MEDS ORDERED: PHENYLEPHRINE in 0.9% NACL PF 1 MG/10 ML DISP.SYRIN. IV ONE (08:14)
[2017-01-18] MEDS ORDERED: EPHEDRINE PF IN SALINE 50 MG/5 ML DISP.SYRIN. IV ONE (08:19)
--- NOTE | 2017-01-18 08:45 | RAD ---
Indication operative cholangiogram. For members of the Department of surgery fluoroscopy was provided. 2 spot fluoroscopic images were obtained. Fluoroscopy time associated with the imaging was 14 seconds. The common bile duct appears normal. No filling defects are seen. Contrast flows unremarkably into the duodenum. IMPRESSION: Normal operative cholangiogram
--- NOTE | 2017-01-18 08:50 | PDOC ---
BRIEF OPERATIVE NOTE Date: Jan 18, 2017 Pre-Op Diagnosis Chronic cholecystitis and GB polyp Post-Op Diagnosis Same Procedure Performed L/S Cholecystectomy with IOC Surgeon Roqeu Anesthesia Type: General Blood Loss 10ml Specimens Obtained Gallbladder Findings As above Complications None RUBI WONG MD Jan 18, 2017 8:50 am
[2017-01-18] MEDS ORDERED: OXYCODONE/APAP 5/325 TABLET. PO PRN (09:00)
[2017-01-18] MEDS ORDERED: AMLODIPINE BESYLATE 10 MG TABLET. PO SCH (09:00)
--- NOTE | 2017-01-18 09:46 | PDOC ---
Subjective: Subjective: Out for surgery. Objective: Vital Signs: Vital Signs Date Time Temp Pulse Resp B/P Pulse Ox O2 Delivery O2 Flow Rate FiO2 01/18/17 09:40 66 12 122/65 95 Room Air 01/18/17 09:10 8 01/18/17 08:55 97.8 97.8 Labs: Laboratory Tests Test 01/17/17 10:00 01/17/17 12:46 01/17/17 16:20 01/17/17 16:37 Prothrombin Time 20.9SEC Prothromb Time International Ratio 1.9 Troponin I Quantitative < 0.017ng/mL < 0.017ng/mL Glucose (Fingerstick) 115mg/dL 147mg/dL Test 01/17/17 20:55 01/18/17 03:40 01/18/17 04:00 01/18/17 07:23 Glucose (Fingerstick) 115mg/dL 119mg/dL Sodium Level 143mmol/L Potassium Level 3.8mmol/L Chloride Level 108mmol/L Carbon Dioxide Level 24mmol/L Anion Gap 11 Blood Urea Nitrogen 16mg/dL Creatinine 0.9mg/dL Estimated GFR (Cockcroft-Gault) 84.4 Glucose Level 134mg/dL Calcium Level 8.8mg/dL White Blood Count 7.2x10^3/uL Red Blood Count 4.65x10^6/uL Hemoglobin 13.6g/dL Hematocrit 40.7% Mean Corpuscular Volume 88fL Mean Corpuscular Hemoglobin 29pg Mean Corpuscular Hemoglobin Concent 33g/dL Red Cell Distribution Width 13.2% Platelet Count 173x10^3/uL Neutrophils (%) (Auto) 79% Lymphocytes (%) (Auto) 14% Monocytes (%) (Auto) 6% Eosinophils (%) (Auto) 1% Basophils (%) (Auto) 1% Neutrophils # (Auto) 5.8x10^3uL Lymphocytes # (Auto) 1.0x10^3/uL Monocytes # (Auto) 0.4x10^3/uL Eosinophils # (Auto) 0.0x10^3/uL Basophils # (Auto) 0.0x10^3/uL Prothrombin Time 19.7SEC Prothromb Time International Ratio 1.8 Test 01/18/17 09:34 Glucose (Fingerstick) 140mg/dL Imaging: IOC IMPRESSION: Normal operative cholangiogram PE: no exam A/P: RUQ pain Abnormal abd US -probably GB polyp, mild CBD dilation -- S/p cholecystectomy w/ normal IOC. Will follow. ELYSSA PLAZA Jan 18, 2017 09:46
--- NOTE | 2017-01-18 09:50 | OP ---
DATE OF SURGERY: 01/18/2017 PREOPERATIVE DIAGNOSES: Chronic cholecystitis, gallbladder polyp. POSTOPERATIVE DIAGNOSES: Chronic cholecystitis, gallbladder polyp. PROCEDURE: Laparoscopic cholecystectomy with intraoperative cholangiogram. SURGEON: Trev Wong M.D. INDICATIONS: The patient is a 66-year-old gentleman who was admitted to the hospital with chest pain with a negative cardiac workup. Ultrasound of his gallbladder showed some mildly thickened gallbladder wall and mildly dilated common bile duct with a shadowing in the gallbladder consistent with a polyp. Procedure of laparoscopic cholecystectomy was explained to the patient in detail. Risks, benefits were also discussed including bleeding, infection, injury to intraabdominal contents, possibly necessitating further open operations. Alternatives of this procedure were also discussed with the patient who seemed to understand and gave verbal consent to have the procedure performed. DESCRIPTION OF PROCEDURE: The patient was taken to the operating room and placed in the supine position, general anesthesia was initiated. Once the patient was asleep and intubated, his abdomen was prepped and draped in usual sterile fashion using ChloraPrep. An area just below the umbilicus injected with 0.25% Marcaine with epinephrine. Incision was made with an 11 blade scalpel and a Veress needle was placed within the abdomen. Pneumoperitoneum was achieved. Once this was completed, an 11 mm port was placed and a 5 mm camera was placed within the abdomen. Abdomen was inspected. No other abnormalities were noted. At this point, three 5 mm ports were then placed under direct visualization, one in the epigastrium, 2 in the right upper quadrant. The dome of the gallbladder was grasped and retracted cephalad. The infundibulum of the gallbladder was grasped and retracted laterally exposing the triangle of Calot. Adherent tissues of the triangle were taken down exposing the cystic duct and cystic artery. The cystic duct was clipped on the gallbladder side, partially opened with EndoShears scissors. A cholangiogram catheter was placed through the anterior abdominal wall ____ 14-gauge Angiocath. This was placed within the cystic duct and the cholangiogram was shot, which showed good retrograde and antegrade flow of contrast material into the hepatic radicals as well as into the duodenum. No evidence of obstruction. At this point, the cholangiogram catheter was removed. The duct was doubly clipped and transected. The cystic duct was doubly clipped and transected. The gallbladder was taken off the liver with hook electrocautery, placed in EndoCatch bag and removed from the umbilicus. Right upper quadrant was irrigated and suctioned dry. Hemostasis seemed to be appropriate and the pneumoperitoneum was reduced. All ports were removed. Fascial defect at the umbilicus closed with [id number] 0 Vicryl suture and the skin was reapproximated at all port sites with 4-0 subcuticular Monocryl. Mastisol, Steri-Strips and Band-Aids were applied as dressings. The patient was awakened, extubated in the operating room, taken to recovery in stable condition. All sponge, instrument counts listed as correct. Estimated blood loss 10 mL. TREV WONG MD DR: ALISON/derrick JOB#: [id number] / [id number] ecc Bry Quach
[2017-01-18 10:33] VITALS: BP 142/76
[2017-01-18] MEDS: HYDRALAZINE 50 MG TABLET PO SCH ×3 (10:46→21:26)
[2017-01-18] MEDS: LISINOPRIL 40 MG TABLET. PO SCH (10:47)
[2017-01-18] MEDS: CHOLECALCIFEROL (VITAMIN D3) 1,000 UNIT TABLET PO SCH (10:47)
[2017-01-18] MEDS: AMLODIPINE BESYLATE 10 MG TABLET. PO SCH (10:48)
[2017-01-18] MEDS: OXYCODONE/APAP 5/325 TABLET. PO PRN ×2 (12:26→21:27)
[2017-01-18 14:27] VITALS: BP 116/63
[2017-01-18] MEDS ORDERED: WARFARIN 4 MG TABLET. PO SCH (16:00)
--- NOTE | 2017-01-18 18:15 | PDOC ---
PROGRESS NOTES Subjective Subjective Post op lap martinez this am, no complications, no cardiac or pulmonary symptoms, he is tolerating Garner after having 2000 cc of retained urine yesterday despite being on tamsulosin Objective Objective Vital Signs Date Time Temp Pulse Resp B/P Pulse Ox O2 Delivery O2 Flow Rate FiO2 01/18/17 14:27 97.3 76 18 116/63 92 Room Air 97.3 01/18/17 10:33 2.0 Intake and Output 01/18/17 07:00 Intake Total 540 ml Output Total 3000 ml Balance -2460 ml Intake Oral 540 ml Output Urine Total 3000 ml Physical Exam Abdomen: Soft, Other (incision sites clean and dry) Heart: Regular rate (irreg but rate controlled) Extremities: No clubbing, No cyanosis, No edema General: Alert, Oriented X3, Cooperative HEENT: Atraumatic MUSCULOSKELETAL: No joint tenderness Neck: Supple Neuro: Normal speech Psych/Mental Status: Mental status NL Skin: Other (venous stasis dermatitis of both lower legs) Assessment Assessment Problems Medical Problems: (1) Chest pain - non cardiac (2) chronic cholelithiasis - with gallbladder polyp, s/p lap martinez (3) chronic afib - resume warfarin on Saturday (4) type 2 diabetes, continue to control (5) urinary retention with BPH - will need Garner x 2 weeks as he has lost his bladder tone, then urology appt Status: Acute Comment Review of Relevant I have reviewed the following items jammie (where applicable) has been applied. Labs Laboratory Tests Test 01/17/17 03:30 01/17/17 10:00 01/17/17 12:46 01/17/17 16:20 White Blood Count 5.1x10^3/uL (4.0-11.0) Red Blood Count 4.69x10^6/uL (4.30-5.70) Hemoglobin 13.7g/dL (13.0-17.5) Hematocrit 41.6% (39.0-53.0) Mean Corpuscular Volume 89fL (79-100) Mean Corpuscular Hemoglobin 29pg (25-35) Mean Corpuscular Hemoglobin Concent 33g/dL (31-37) Red Cell Distribution Width 13.7% (11.5-14.5) Platelet Count 182x10^3/uL (140-400) Neutrophils (%) (Auto) 61% (31-73) Lymphocytes (%) (Auto) 27% (24-48) Monocytes (%) (Auto) 9% (0-9) Eosinophils (%) (Auto) 3% (0-3) Basophils (%) (Auto) 1% (0-3) Neutrophils # (Auto) 3.1x10^3uL (1.8-7.7) Lymphocytes # (Auto) 1.4x10^3/uL (1.0-4.8) Monocytes # (Auto) 0.5x10^3/uL (0.0-1.1) Eosinophils # (Auto) 0.1x10^3/uL (0.0-0.7) Basophils # (Auto) 0.0x10^3/uL (0.0-0.2) Sodium Level 142mmol/L (136-145) Potassium Level 3.7mmol/L (3.5-5.1) Chloride Level 105mmol/L (98-107) Carbon Dioxide Level 27mmol/L (21-32) Anion Gap 10 (6-14) Blood Urea Nitrogen 15mg/dL (8-26) Creatinine 1.0mg/dL (0.7-1.3) Estimated GFR (Cockcroft-Gault) 74.8 Glucose Level 130mg/dL (70-99) Calcium Level 9.6mg/dL (8.5-10.1) Total Bilirubin 0.4mg/dL (0.2-1.0) Direct Bilirubin 0.1mg/dL (0.0-0.2) Aspartate Amino Transf (AST/SGOT) 25U/L (15-37) Alanine Aminotransferase (ALT/SGPT) 21U/L (16-63) Alkaline Phosphatase 75U/L (46-116) Troponin I Quantitative < 0.017ng/mL (0.000-0.055) < 0.017ng/mL (0.000-0.055) < 0.017ng/mL (0.000-0.055) WO-Hzj-L-Type Natriuretic Peptide 650pg/mL (0-124) Total Protein 7.4g/dL (6.4-8.2) Albumin 4.0g/dL (3.4-5.0) Lipase 118U/L (73-393) Prothrombin Time 20.9SEC (11.7-14.0) Prothromb Time International Ratio 1.9 (0.8-1.1) Glucose (Fingerstick) 115mg/dL (70-99) Test 01/17/17 16:37 01/17/17 20:55 01/18/17 03:40 01/18/17 04:00 Glucose (Fingerstick) 147mg/dL (70-99) 115mg/dL (70-99) Sodium Level 143mmol/L (136-145) Potassium Level 3.8mmol/L (3.5-5.1) Chloride Level 108mmol/L (98-107) Carbon Dioxide Level 24mmol/L (21-32) Anion Gap 11 (6-14) Blood Urea Nitrogen 16mg/dL (8-26) Creatinine 0.9mg/dL (0.7-1.3) Estimated GFR (Cockcroft-Gault) 84.4 Glucose Level 134mg/dL (70-99) Calcium Level 8.8mg/dL (8.5-10.1) White Blood Count 7.2x10^3/uL (4.0-11.0) Red Blood Count 4.65x10^6/uL (4.30-5.70) Hemoglobin 13.6g/dL (13.0-17.5) Hematocrit 40.7% (39.0-53.0) Mean Corpuscular Volume 88fL (79-100) Mean Corpuscular Hemoglobin 29pg (25-35) Mean Corpuscular Hemoglobin Concent 33g/dL (31-37) Red Cell Distribution Width 13.2% (11.5-14.5) Platelet Count 173x10^3/uL (140-400) Neutrophils (%) (Auto) 79% (31-73) Lymphocytes (%) (Auto) 14% (24-48) Monocytes (%) (Auto) 6% (0-9) Eosinophils (%) (Auto) 1% (0-3) Basophils (%) (Auto) 1% (0-3) Neutrophils # (Auto) 5.8x10^3uL (1.8-7.7) Lymphocytes # (Auto) 1.0x10^3/uL (1.0-4.8) Monocytes # (Auto) 0.4x10^3/uL (0.0-1.1) Eosinophils # (Auto) 0.0x10^3/uL (0.0-0.7) Basophils # (Auto) 0.0x10^3/uL (0.0-0.2) Prothrombin Time 19.7SEC (11.7-14.0) Prothromb Time International Ratio 1.8 (0.8-1.1) Test 01/18/17 07:23 01/18/17 09:34 01/18/17 10:35 01/18/17 16:51 Glucose (Fingerstick) 119mg/dL (70-99) 140mg/dL (70-99) 155mg/dL (70-99) 176mg/dL (70-99) Laboratory Tests Test 01/17/17 20:55 01/18/17 03:40 01/18/17 04:00 01/18/17 07:23 Glucose (Fingerstick) 115mg/dL (70-99) 119mg/dL (70-99) Sodium Level 143mmol/L (136-145) Potassium Level 3.8mmol/L (3.5-5.1) Chloride Level 108mmol/L (98-107) Carbon Dioxide Level 24mmol/L (21-32) Anion Gap 11 (6-14) Blood Urea Nitrogen 16mg/dL (8-26) Creatinine 0.9mg/dL (0.7-1.3) Estimated GFR (Cockcroft-Gault) 84.4 Glucose Level 134mg/dL (70-99) Calcium Level 8.8mg/dL (8.5-10.1) White Blood Count 7.2x10^3/uL (4.0-11.0) Red Blood Count 4.65x10^6/uL (4.30-5.70) Hemoglobin 13.6g/dL (13.0-17.5) Hematocrit 40.7% (39.0-53.0) Mean Corpuscular Volume 88fL (79-100) Mean Corpuscular Hemoglobin 29pg (25-35) Mean Corpuscular Hemoglobin Concent 33g/dL (31-37) Red Cell Distribution Width 13.2% (11.5-14.5) Platelet Count 173x10^3/uL (140-400) Neutrophils (%) (Auto) 79% (31-73) Lymphocytes (%) (Auto) 14% (24-48) Monocytes (%) (Auto) 6% (0-9) Eosinophils (%) (Auto) 1% (0-3) Basophils (%) (Auto) 1% (0-3) Neutrophils # (Auto) 5.8x10^3uL (1.8-7.7) Lymphocytes # (Auto) 1.0x10^3/uL (1.0-4.8) Monocytes # (Auto) 0.4x10^3/uL (0.0-1.1) Eosinophils # (Auto) 0.0x10^3/uL (0.0-0.7) Basophils # (Auto) 0.0x10^3/uL (0.0-0.2) Prothrombin Time 19.7SEC (11.7-14.0) Prothromb Time International Ratio 1.8 (0.8-1.1) Test 01/18/17 09:34 01/18/17 10:35 01/18/17 16:51 Glucose (Fingerstick) 140mg/dL (70-99) 155mg/dL (70-99) 176mg/dL (70-99) Medications Current Medications Aspirin (Children'S Aspirin) 324 mg 1X ONCE PO Last administered on 01/17/17 05:25; Start 01/17/17 at 04:00; Stop 01/17/17 at 04:01; Status DC Ondansetron HCl (Zofran) 4 mg PRN Q8HRS PRN IV NAUSEA/VOMITING; Start 01/17/17 at 04:30; Stop 01/18/17 at 04:29; Status DC Morphine Sulfate 2 mg PRN Q2HR PRN IV SEVERE PAIN Last administered on 22:23; Start 01/17/17 at 04:30; Stop 01/18/17 at 04:29; Status DC Nitroglycerin (Nitrostat) 0.4 mg PRN Q5MIN PRN SL CHEST PAIN Last administered on 01/17/17 05:25; Start 01/17/17 at 04:30; Stop 01/18/17 at 04:29; Status DC Hydralazine HCl (Apresoline) 10 mg 1X ONCE IVP ; Start 01/17/17 at 05:00; Stop 01/17/17 at 05:01; Status DC Acarbose (Precose) 50 mg TIDBFRMEAL PO ; Start 01/17/17 at 11:30 Amlodipine Besylate (Norvasc) 10 mg DAILY PO ; Start 01/18/17 at 09:00; Stop at 09:00; Status DC Vitamin D (Vitamin D3) 1,000 unit DAILY PO Last administered on 01/18/17 10:47 ; Start 01/17/17 at 10:00 Gabapentin (Neurontin) 300 mg HS PO Last administered on 01/17/17 20:55; Start 01/17/17 at 21:00 Lisinopril (Prinivil) 40 mg DAILY PO Last administered on 01/18/17 10:47; Start 01/17/17 at 10:00 Metformin HCl (Glucophage) 500 mg TIDWMEALS PO Last administered on 01/18/17 12:20; Start 01/17/17 at 12:00 Tamsulosin HCl (Flomax) 0.4 mg HS PO Last administered on 01/17/17 20:55; Start 01/17/17 at 21:00 Warfarin Sodium (Coumadin) 8 mg DAILY16 PO ; Start 01/17/17 at 16:00; Stop 01/17 at 16:00; Status DC Non-Formulary Medication 1 tab TID PO ; Start 01/17/17 at 14:00; Stop 01/17/17 at 14:00; Status DC Insulin Detemir (Levemir) 30 units QHS SQ ; Start 01/17/17 at 21:00 Amlodipine Besylate (Norvasc) 10 mg DAILY PO Last administered on 01/18/17 10: 48; Start 01/17/17 at 10:00 Hydralazine HCl (Apresoline) 100 mg TID PO Last administered on 01/18/17 10:46 ; Start 01/17/17 at 10:00 Warfarin Sodium 1 each 1 each PRN DAILY PRN MC SEE COMMENTS Last administered on 01/18/17 09:39; Start 01/17/17 at 11:00 Cefazolin Sodium/ Dextrose (Ancef 2gm Premix) 50 ml @ 100 mls/hr 1X PREOP IV Last administered on 01/18/17 08:07; Start 01/18/17 at 07:00; Stop 01/18/17 at 18:00; Status DC Ondansetron HCl (Zofran) 0.4 mg PRN Q6HRS PRN IV NAUSEA/VOMITING; Start at 07:00; Stop 01/19/17 at 06:59 Fentanyl Citrate (Fentanyl 2ml Vial) 25 mcg PRN Q5MIN PRN IV MILD PAIN Last administered on 01/18/17 12:28; Start 01/18/17 at 07:00; Stop 01/19/17 at 06:59 Fentanyl Citrate (Fentanyl 2ml Vial) 50 mcg PRN Q5MIN PRN IV MODERATE PAIN Last administered on 01/18/17 09:38; Start 01/18/17 at 07:00; Stop 01/19/17 at 06:59 Morphine Sulfate 1 mg 1 mg PRN Q10MIN PRN IV SEVERE PAIN; Start 01/18/17 at 07: 00; Stop 01/19/17 at 06:59 Lactated Ringer's (Iv Lactated Ringers) 1,000 ml @ 30 mls/hr Q24H IV Last administered on 01/18/17 09:24; Start 01/18/17 at 07:00; Stop 01/18/17 at 18:59 Lidocaine HCl 2 ml PRN 1X PRN ID PRIOR TO IV START; Start 01/18/17 at 07:00; Stop 01/19/17 at 06:59 Hydromorphone HCl (Dilaudid) 0.5 mg PRN Q10MIN PRN IV SEV PAIN, Second choice; Start 01/18/17 at 07:00; Stop 01/19/17 at 06:59 Prochlorperazine Edisylate (Compazine) 5 mg PACU PRN PRN IV NAUSEA, MRX1; Start 01/18/17 at 07:00; Stop 01/19/17 at 06:59 Fentanyl Citrate (Fentanyl 2ml Vial) 100 mcg STK-MED ONCE .ROUTE ; Start at 07:40; Stop 01/18/17 at 07:41; Status DC Isoflurane (Isoflurane) 90 ml STK-MED ONCE IH ; Start 01/18/17 at 07:41; Stop at 07:42; Status DC Dexamethasone Sodium Phosphate (Decadron) 20 mg STK-MED ONCE .ROUTE ; Start at 07:41; Stop 01/18/17 at 07:42; Status DC Ondansetron HCl (Zofran) 4 mg STK-MED ONCE .ROUTE ; Start 01/18/17 at 07:41; Stop 01/18/17 at 07:42; Status DC Lidocaine HCl 100 mg STK-MED ONCE .ROUTE ; Start 01/18/17 at 07:41; Stop at 07:42; Status DC Glycopyrrolate (Robinul) 1 mg STK-MED ONCE .ROUTE ; Start 01/18/17 at 07:41; Stop 01/18/17 at 07:42; Status DC Neostigmine Methylsulfate 5 mg STK-MED ONCE .ROUTE ; Start 01/18/17 at 07:42; Stop 01/18/17 at 07:43; Status DC Rocuronium [place] (Zemuron) 50 mg STK-MED ONCE .ROUTE ; Start 01/18/17 at 07:42 ; Stop 01/18/17 at 07:43; Status DC Phenylephrine HCl 1 mg STK-MED ONCE IV ; Start 01/18/17 at 08:14; Stop 01/18/17 at 08:15; Status DC Ephedrine Sulfate 50 mg STK-MED ONCE IV ; Start 01/18/17 at 08:19; Stop at 08:20; Status DC Iohexol (Omnipaque 300 Mg/ml) 50 ml STK-MED ONCE IJ Last administered on t 08:11; Start 01/18/17 at 08:11; Stop 01/18/17 at 08:25; Status DC Bupivacaine HCl/ Epinephrine Bitart (Sensorcaine-Epi 0.25%-1:968681 Mpf) 30 ml STK-MED ONCE INJ Last administered on 01/18/17t 08:11; Start 01/18/17 at 08:11 ; Stop 01/18/17 at 08:25; Status DC Lidocaine HCl 100 mg STK-MED ONCE .ROUTE ; Start 01/18/17 at 08:24; Stop at 08:25; Status DC Warfarin Sodium (Coumadin) 8 mg DAILY16 PO ; Start 01/18/17 at 16:00 Oxycodone/ Acetaminophen (Percocet 5/325) 1 tab PRN Q4HRS PRN PO PAIN Last administered on 01/18/17t 12:26; Start 01/18/17 at 09:00 Oxycodone/ Acetaminophen (Percocet 5/325) 2 tab PRN Q4HRS PRN PO PAIN; Start at 09:00 Active Scripts Active Pravastatin Sodium 40 Mg Tablet 1 Tab PO QHS Reported Vitamin D3 (Cholecalciferol (Vitamin D3)) 1,000 Unit Tablet 1,000 Unit PO Hydralazine Hcl 100 Mg Tablet 1 Tab PO TID Gabapentin 300 Mg Capsule 300 Mg PO TID Coumadin (Warfarin Sodium) 4 Mg Tablet 2 Tab PO DAILY Lisinopril 40 Mg Tablet 1 Tab PO DAILY Acarbose 50 Mg Tablet 50 Mg PO TIDBFRMEAL Levemir (Insulin Detemir) 100 Unit/1 Ml Vial 30 Unit SQ HS Tamsulosin Hcl 0.4 Mg Cap.er.24h 0.4 Mg PO HS Metformin Hcl 500 Mg Tablet 500 Mg PO TIDWMEALS Amlodipine Besylate 10 Mg Tablet 10 Mg PO DAILY Vitals/I & O Vital Sign - Last 24 Hours 01/17/17 01/17/17 01/17/17 01/17/17 19:20 19:54 20:00 20:56 Temp 98.3 98.3 Pulse 77 77 Resp 22 20 B/P 167/91 167/91 Pulse Ox 95 O2 Delivery Room Air Room Air Room Air 01/17/17 01/17/17 01/17/17 01/18/17 22:23 23:00 23:20 03:35 Temp 97.9 98.3 97.9 98.3 Pulse 68 72 Resp 20 18 16 16 B/P 136/84 137/78 Pulse Ox 95 95 95 96 O2 Delivery Room Air Room Air Room Air Room Air 01/18/17 01/18/17 01/18/17 01/18/17 07:37 08:55 09:10 09:25 Temp 99.1 97.8 99.1 97.8 Pulse 72 88 74 74 Resp 13 18 16 16 B/P 151/94 156/77 133/62 115/70 Pulse Ox 96 99 99 91 O2 Delivery Room Air Simple Mask Simple Mask Room Air O2 Flow Rate 8 8 01/18/17 01/18/17 01/18/17 01/18/17 09:38 09:40 10:10 10:33 Temp 98.1 98.1 Pulse 66 65 Resp 16 12 16 18 B/P 122/65 142/76 Pulse Ox 94 95 97 O2 Delivery Room Air Nasal Cannula O2 Flow Rate 2.0 01/18/17 01/18/17 01/18/17 01/18/17 10:46 10:47 10:48 12:26 Pulse 70 70 70 Resp 16 B/P 152/80 152/80 152/80 01/18/17 01/18/17 01/18/17 01/18/17 12:28 13:18 13:18 13:45 Pulse 83 Resp 16 16 16 B/P 115/57 01/18/17 14:27 Temp 97.3 97.3 Pulse 76 Resp 18 B/P 116/63 Pulse Ox 92 O2 Delivery Room Air Intake and Output 01/17/17 01/17/17 01/18/17 15:00 23:00 07:00 Intake Total 540 ml 0 ml Output Total 1700 ml 1300 ml Balance -1160 ml -1300 ml SHAY ARANDA MD Jan 18, 2017 18:15
[2017-01-18 19:45] VITALS: BP 102/65
[2017-01-18] MEDS: INSULIN DETEMIR 300 UNITS/3 ML INSULN.PEN. SQ SCH (21:23)
[2017-01-18] MEDS: TAMSULOSIN 0.4 MG CAP.ER.24H. PO SCH (21:26)
[2017-01-18] MEDS: GABAPENTIN 300 MG CAPSULE. PO SCH (21:26)
[2017-01-18 23:30] VITALS: BP 121/71
[2017-01-19 03:30] VITALS: BP 135/75
[2017-01-19 05:58] LABS: INR 1.7 (0.8-1.1); PROTHROMBIN TIME PATIENT 19.4 SEC (11.7-14.0)
[2017-01-19 07:25] VITALS: BP 145/86
[2017-01-19] MEDS: ACARBOSE 50 MG TABLET PO SCH (07:30)
[2017-01-19] MEDS: LISINOPRIL 40 MG TABLET. PO SCH (08:41)
[2017-01-19] MEDS: METFORMIN 500 MG TABLET. PO SCH (08:42)
[2017-01-19] MEDS: AMLODIPINE BESYLATE 10 MG TABLET. PO SCH (08:42)
[2017-01-19] MEDS: CHOLECALCIFEROL (VITAMIN D3) 1,000 UNIT TABLET PO SCH (08:42)
[2017-01-19 08:43] VITALS: BP 145/86
[2017-01-19] MEDS: HYDRALAZINE 50 MG TABLET PO SCH (08:43)
--- NOTE | 2017-01-19 09:18 | DISCH ---
DISCHARGE INSTRUCTIONS Condition on Discharge Condition on Discharge: Stable Activity After Discharge Activity Instructions for Disc: Activity as tolerated (limits per gen surgery routine post op) Diet after Discharge Diet after Discharge: Cardiac Wound Incision Care Wound/Incision Care: Keep wound/cast CDI Other wound/incision instructi: per general surgery Contacting the DRBrice after DC Call your doctor for: If your condition worsens Follow-Up Follow up with: Dr Quach in 1-2 weeks, Dr Aguiar in 2 weeks Follow Up With: General surgery per nury griffith Warfarin Follow-Up Warfarin Follow UP: resume warfarin usu dose on Saturday evening RACHELLE SMITH MD Jan 19, 2017 09:18
[2017-01-19] MEDS ORDERED: OXYC1TAB7 PO (09:23)
[2017-01-19] MEDS ORDERED: WARF4TAB PO (09:24)
--- NOTE | 2017-01-19 09:34 | PDOC ---
Provider Note Provider Note See discharge summary dictation #[id number] RACHELLE SMITH MD Jan 19, 2017 09:34
--- NOTE | 2017-01-19 10:29 | PDOC ---
SURGICAL PROGRESS NOTE Subjective Patient doing well, some umbilical soreness Vital Signs Vital Signs Date Time Temp Pulse Resp B/P Pulse Ox O2 Delivery O2 Flow Rate FiO2 01/19/17 08:43 69 145/86 01/19/17 08:00 Room Air 01/19/17 07:25 98.1 22 93 98.1 01/18/17 10:33 2.0 I&O Intake and Output 01/19/17 07:00 Intake Total 2395 ml Output Total 1435 ml Balance 960 ml Intake Oral 445 ml IV Total 1950 ml Output Urine Total 1425 ml Estimated Blood Loss 10 ml PATIENT HAS A HEALY: No General: Alert, Oriented X3, Cooperative, No acute distress Abdomen: Normal bowel sounds, Soft, No tenderness Labs Laboratory Tests Test 01/17/17 12:46 01/17/17 16:20 01/17/17 16:37 01/17/17 20:55 Glucose (Fingerstick) 115mg/dL (70-99) 147mg/dL (70-99) 115mg/dL (70-99) Troponin I Quantitative < 0.017ng/mL (0.000-0.055) Test 01/18/17 03:40 01/18/17 04:00 01/18/17 07:23 01/18/17 09:34 Sodium Level 143mmol/L (136-145) Potassium Level 3.8mmol/L (3.5-5.1) Chloride Level 108mmol/L (98-107) Carbon Dioxide Level 24mmol/L (21-32) Anion Gap 11 (6-14) Blood Urea Nitrogen 16mg/dL (8-26) Creatinine 0.9mg/dL (0.7-1.3) Estimated GFR (Cockcroft-Gault) 84.4 Glucose Level 134mg/dL (70-99) Calcium Level 8.8mg/dL (8.5-10.1) White Blood Count 7.2x10^3/uL (4.0-11.0) Red Blood Count 4.65x10^6/uL (4.30-5.70) Hemoglobin 13.6g/dL (13.0-17.5) Hematocrit 40.7% (39.0-53.0) Mean Corpuscular Volume 88fL (79-100) Mean Corpuscular Hemoglobin 29pg (25-35) Mean Corpuscular Hemoglobin Concent 33g/dL (31-37) Red Cell Distribution Width 13.2% (11.5-14.5) Platelet Count 173x10^3/uL (140-400) Neutrophils (%) (Auto) 79% (31-73) Lymphocytes (%) (Auto) 14% (24-48) Monocytes (%) (Auto) 6% (0-9) Eosinophils (%) (Auto) 1% (0-3) Basophils (%) (Auto) 1% (0-3) Neutrophils # (Auto) 5.8x10^3uL (1.8-7.7) Lymphocytes # (Auto) 1.0x10^3/uL (1.0-4.8) Monocytes # (Auto) 0.4x10^3/uL (0.0-1.1) Eosinophils # (Auto) 0.0x10^3/uL (0.0-0.7) Basophils # (Auto) 0.0x10^3/uL (0.0-0.2) Prothrombin Time 19.7SEC (11.7-14.0) Prothromb Time International Ratio 1.8 (0.8-1.1) Glucose (Fingerstick) 119mg/dL (70-99) 140mg/dL (70-99) Test 01/18/17 10:35 01/18/17 16:51 01/18/17 20:44 01/19/17 05:00 Glucose (Fingerstick) 155mg/dL (70-99) 176mg/dL (70-99) 178mg/dL (70-99) Prothrombin Time 19.4SEC (11.7-14.0) Prothromb Time International Ratio 1.7 (0.8-1.1) Test 01/19/17 07:45 Glucose (Fingerstick) 91mg/dL (70-99) Laboratory Tests Test 01/18/17 10:35 01/18/17 16:51 01/18/17 20:44 01/19/17 05:00 Glucose (Fingerstick) 155mg/dL (70-99) 176mg/dL (70-99) 178mg/dL (70-99) Prothrombin Time 19.4SEC (11.7-14.0) Prothromb Time International Ratio 1.7 (0.8-1.1) Test 01/19/17 07:45 Glucose (Fingerstick) 91mg/dL (70-99) Problem List Problems Medical Problems: (1) Chest pain Status: Acute (2) Chronic cholecystitis Status: Acute Assessment/Plan S/P L/S cholecystectomy doing well tolerating diet OK to D/C home F/U surgery clinic 2 weeks Problems: RUBI WONG MD Jan 19, 2017 10:29
--- NOTE | 2017-01-19 12:04 | DS ---
DATE OF DISCHARGE: 01/19/2017 ATTENDING PHYSICIAN: Dr. Dereje Quach CHIEF COMPLAINT: Right-sided chest pain. HISTORY OF PRESENT ILLNESS: The patient is a 66-year-old male with a history of chronic atrial fibrillation who presented with several days of pain in the right chest that became much more severe on the day of admission. He did have some shortness of breath associated with it. HOSPITAL COURSE: The patient was admitted for evaluation of the chest pain that did not appear to be cardiac in etiology. He did undergo an ultrasound of the right upper quadrant, which did show a positive sonographic Aragon sign. There was also an 8 mm nonmobile echogenic lesion along the gallbladder likely due to a polyp. There was some mild common bile duct dilatation as well. He was seen by General Surgery. He underwent surgical cholecystectomy where it appeared he had chronic cholecystitis with the gallbladder polyp, most likely he had an uneventful postoperative course with that. At the time of discharge, he was tolerating his diet. His pain was well controlled and he was taking minimal pain medication. He was not having any further chest pain or shortness of breath. He also was noted to have a distended bladder with greater than 1500 mL of urine. He had a Garner catheter placed. This was prior to surgery. He does have a history of BPH. The Garner catheter will be left in with followup for Urology in approximately 2 weeks. His atrial fibrillation had a controlled rate. He did not have any further problems with that. His anticoagulation was held and he will resume that on 01/20/2017 with his usual dosing. At the time of discharge, the patient was tolerating his diet. He was ambulating without difficulty. His pain was controlled. He denied any chest pain or shortness of breath. He was afebrile. PHYSICAL EXAMINATION: VITAL SIGNS: Stable. GENERAL: He is alert, in no distress. CHEST: Clear to auscultation bilaterally. HEART: Had a regular rate and rhythm. ABDOMEN: Soft with minimal appropriate tenderness. The port site on the anterior abdomen were clean, dry and intact with minimal amount of dry blood on the middle right upper quadrant port. There is no guarding or rebound. EXTREMITIES: Without edema. LABORATORY DATA: At time of discharge, WBC was 7.2. INR was 1.7. Intraoperative cholangiogram did not show any filling defects and appeared to be normal. DISCHARGE DIAGNOSES: 1. Chronic cholecystitis. 2. Chest pain, noncardiac in etiology. 3. Chronic atrial fibrillation. 4. Diabetes mellitus type 2. 5. Urinary retention secondary to BPH, now with the Garner catheter in place. DISCHARGE DIET: Diabetic cardiac diet. DISCHARGE ACTIVITIES: As tolerated and per usual postoperative routine. FOLLOWUP: The patient is to follow up with General Surgery per their recommendation in approximately 2 weeks. He is to follow up with Dr. Quach in approximately 1-2 weeks. He is to follow up with Urology, Dr. Aguiar in 2 weeks, referral will be done for that. He is to continue with the Garner catheter until he is seen by Urology. MEDICATIONS: At the time of discharge include Percocet 5/325 one p.o. q. 4 hours p.r.n. #20, acarbose 50 mg p.o. t.i.d. with meals, Norvasc 10 mg p.o. daily, vitamin D 1000 units p.o. daily, gabapentin 300 mg p.o. t.i.d., hydralazine 100 mg p.o. t.i.d., Levemir 30 units subcutaneously at bedtime, lisinopril 40 mg p.o. daily, metformin 500 mg p.o. t.i.d. with meals, pravastatin 40 mg p.o. at bedtime, Flomax 0.4 mg p.o. daily, Coumadin 8 mg p.o. daily, which will be resumed on 01/20/2017. RACHELLE SMITH MD DR: PHI/derrick JOB#: [id number] / [id number]
--- NOTE | 2017-01-21 15:29 | PATHOLOGY ---
PATHOLOGY REPORT * * * * * * * * FINAL DIAGNOSIS: Gallbladder, laparoscopic cholecystectomy: - Cholelithiasis. - Chronic cholecystitis. COMMENT: There is no evidence of malignancy. (LAURA:; d/t: 01/21/17) REPORT ELECTRONICALLY SIGNED BY: Guido Andujar M.D. DATE/TIME: 01/21/2017 15:28 * * * * * * * * GROSS PATHOLOGY: Received in formalin labeled "Seth Vergara, gallbladder sac with contents," is a 8.2 x 3.2 x 3.1 cm, intact gallbladder with greer-mercer serosal surfaces. Opening the gallbladder reveals a velvety, bile-stained mucosa and an average wall thickness of 0.1 cm. A single black multinodular calculus is present and no masses are noted grossly. Phlebotomy Instructor sections from the body and fundus are submitted along with the proximal margin in cassette A1. (CAA; 01/18/2017) INITIAL CPT CODE(S): A; 96386 Professional services performed [place] [address] Technical services performed by [facility] at [address] [place] [address]. SPECIMEN(S) RECEIVED: A.Gallbladder sac with contents CLINICAL HISTORY: RUQ abdominal pain with abnormal ultrasound PATIENT: YASMINE VERGARA /AGE: 7 1950 (Age: 66) PATIENT #: [id number] CASE #: SPECIMEN COLLECTION DATE: 01/18/2017 SPECIMEN RECEIVED DATE: 01/18/2017 [facility] - [id number] [place] [address] - PHONE: [phone] * * * END OF REPORT * * *
== END 2017-01-19 11:12 | disposition home or self-care (01) ==
LOC: ER 03:24 → 2 NORTH 04:14
PROVIDERS: ADMIT Family Medicine; ATTEND Family Medicine
DX: K80.10 Calculus of gallbladder with chronic cholecystitis without obstruction (principal); R07.89 Other chest pain; I48.2 Chronic atrial fibrillation; E78.5 Hyperlipidemia, unspecified; G47.33 Obstructive sleep apnea (adult) (pediatric); N40.1 Benign prostatic hyperplasia with lower urinary tract symptoms; R33.8 Other retention of urine; E11.42 Type 2 diabetes mellitus with diabetic polyneuropathy; E11.22 Type 2 diabetes mellitus with diabetic chronic kidney disease; I12.9 Hypertensive chronic kidney disease with stage 1 through stage 4 chronic kidney disease, or unspecified chronic kidney disease; N18.2 Chronic kidney disease, stage 2 (mild); M19.90 Unspecified osteoarthritis, unspecified site; Z79.01 Long term (current) use of anticoagulants; Z86.73 Personal history of transient ischemic attack (TIA), and cerebral infarction without residual deficits
CPT/HCPCS: 36415; 47563; 71010; 74300; 76700; 80048; 80076; 82947; 83690; 83880; 84484; 85027; 85610; 88304; 93005; 93306; 96365; 96372; 96375; 96376; 99285; C1782; G0378; J0690; J1100; J1815; J2270; J2370; J2405; J2710; J3010; J3490; J7030; Q9967; G0379; J7120

== ENCOUNTER → 2018-06-25 | Outpatient (CLI) | payer MEDICARE, OTHER ==
[~2018-06-25] MED LIST changes: -AMIO200T2 PO; +AMIO200T4 PO; -AMLO10TA2 PO; +AMLO10TA6 PO; +CHOL10003 PO; +GABA-586 PO; +HYDR100T24 PO; +LISI-130 PO; +METF500T16 PO; -METF500T4 PO; +OXYC1TAB7 PO; -PIOG45TA19 PO; +PIOG45TA40 PO; +PRAV40TA2 PO; -WARF10TA PO; +WARF10TA45 PO; -WARF2TAB7 PO; +WARF2TAB96 PO; +WARF4TAB68 PO
--- NOTE | 2018-06-25 16:22 | CARD ---
MR#: [id number] Date of Study: 06/25/2018 Ordering Physician: ROMELIA HARRINGTON, Referring Physician: Hermilo DELGADO: MIKE Cullen APPROVED REPORT EXAM: Two-dimensional and M-mode echocardiogram with Doppler and color Doppler. Other Information Quality : AverageHR: 76bpm INDICATION Atrial Fibrillation 2D DIMENSIONS RVDd3.7 (2.9-3.5cm)Left Atrium(2D)4.3 (1.6-4.0cm) IVSd1.5 (0.7-1.1cm)Aortic Root(2D)3.7 (2.0-3.7cm) LVDd5.5 (3.9-5.9cm)LVOT Diameter2.4 (1.8-2.4cm) PWd1.4 (0.7-1.1cm)LVDs3.1 (2.5-4.0cm) FS (%) 28.0 % Aortic Valve AoV Peak Jose David.155.7cm/sAoV VTI34.5cm AO Peak GR.9.7mmHgLVOT VTI 19.93cm AO Mean GR.5mmHg Mitral Valve MV E Peak Gr.77mmHg TDI Lateral E' P. V12.55cm/sMedial E' P. V9.65cm/s Pulmonary Valve PV Peak Tjjeyoqg482.1cm/s Tricuspid Valve TR P. Nobzfgad545xd/sTR Peak Gr.38mmHg Pulmonary Vein S1 Mxjkguns57.0cm/sS2 Darllncy42.05cm/s D2 Pwugjmvs79.1cm/s LEFT VENTRICLE The left ventricle is normal size. There is mild to moderate concentric left ventricular hypertrophy. The left ventricular systolic function is normal . The ejection fraction is estimated at 60%. There is normal LV segmental wall motion. RIGHT VENTRICLE The right ventricle is normal size. The right ventricular systolic function is normal. ATRIA The left atrium is mildly dilated. The right atrium is visually estimated to be moderately dilated. T he interatrial septum is intact with no evidence for an atrial septal defect or patent foramen ovale as noted on 2-D or Doppler imaging. AORTIC VALVE The aortic valve is mildly thickened. Doppler and Color Flow revealed mild aortic regurgitation. Ther e is no significant aortic valvular stenosis. There is no aortic valvular vegetation. MITRAL VALVE The mitral valve is thickened but opens well. There is no evidence of mitral valve prolapse. There is no mitral valve stenosis. Doppler and Color-flow revealed trace mitral regurgitation. TRICUSPID VALVE The tricuspid valve leaflets are thickened , but open well. Doppler and Color Flow revealed mild tric uspid regurgitation. There is no tricuspid valve prolapse or vegetation. There is no tricuspid valve stenosis. PULMONIC VALVE The pulmonic valve is not well visualized. Doppler and Color Flow revealed no pulmonic valvular regur gitation. There is no pulmonic valvular stenosis. GREAT VESSELS The aortic root is normal in size. The IVC is normal in size and collapses >50% with inspiration. PERICARDIAL EFFUSION There is no pleural effusion. There is no evidence of significant pericardial effusion. Critical Notification Critical Value: No <Conclusion> The left ventricular systolic function is normal . The ejection fraction is estimated at 60%. There is normal LV segmental wall motion. The left atrium is mildly dilated. Mild aortic regurgitation. Trace mitral regurgitation. Mild tricuspid regurgitation. There is no evidence of significant pericardial effusion. Signed by : Romelia Harrington, Electronically Approved : 06/25/2018 16:22:07
== END | disposition home or self-care (01) ==
LOC: ECHO 12:47
PROVIDERS: ATTEND Internal Medicine Cardiovascular Disease
DX: I48.91 Unspecified atrial fibrillation (principal); I35.1 Nonrheumatic aortic (valve) insufficiency; I12.9 Hypertensive chronic kidney disease with stage 1 through stage 4 chronic kidney disease, or unspecified chronic kidney disease; E11.22 Type 2 diabetes mellitus with diabetic chronic kidney disease; N18.2 Chronic kidney disease, stage 2 (mild); E11.42 Type 2 diabetes mellitus with diabetic polyneuropathy; M19.90 Unspecified osteoarthritis, unspecified site; I25.10 Atherosclerotic heart disease of native coronary artery without angina pectoris; Z87.891 Personal history of nicotine dependence
CPT/HCPCS: 93306

== ENCOUNTER → 2019-06-23 | Outpatient (CLI) | payer MEDICARE, OTHER ==
[~2019-06-23] MED LIST changes: -AMLO10TA6 PO; +AMLO10TA8 PO; -GABA-586 PO; +GABA300C18 PO; -GABA600T2 PO; +GABA600T7 PO; +HYDR-2145 PO; -HYDR25TA9 PO
--- NOTE | 2019-06-23 11:21 | CARD ---
MR#: [id number] Date of Study: 06/23/2019 Ordering Physician: ROMELIA ROACH, Referring Physician: ROMELIA ROACH Tech: Irasema Weinstein RDCS APPROVED REPORT EXAM: Two-dimensional and M-mode echocardiogram with Doppler and color Doppler. Other Information Quality : Good INDICATION Atrial Fibrillation 2D DIMENSIONS RVDd3.3 (2.9-3.5cm)Left Atrium(2D)4.6 (1.6-4.0cm) IVSd1.4 (0.7-1.1cm)Aortic Root(2D)3.4 (2.0-3.7cm) LVDd5.2 (3.9-5.9cm)LVOT Diameter2.3 (1.8-2.4cm) PWd1.2 (0.7-1.1cm)LVDs3.3 (2.5-4.0cm) FS (%) 35.9 %SV83.4 ml LVEF(%)60.0 (>50%) Aortic Valve AoV Peak Jose David.187.0cm/sAoV VTI34.1cm AO Peak GR.14.0mmHgLVOT Peak Jose David.108.1cm/s AO Mean GR.6mmHgAVA (VMAX)2.34cm2 ARNAV (VTI)2.06ni9LP P 1/2 Olzs242xm Mitral Valve MV E Roccujqs824.5cm/sMV DECEL EMYE657jb MV A Vbvglhbx71.9cm/sE/A Ratio3.7 Tricuspid Valve TR P. Lbjkvfqx274br/sRAP DEIWTSJY3wlCm TR Peak Gr.40qfSoRQVP03fgDw LEFT VENTRICLE The left ventricle is normal size. There is mild concentric left ventricular hypertrophy. The left ve ntricular systolic function is normal and the ejection fraction is within normal range. The Ejection Fraction is 55-60%. There is normal LV segmental wall motion. RIGHT VENTRICLE The right ventricle is moderately dilated. Systolic function is mildly reduced. ATRIA The left atrium is modeartely to severely dilated. The right atrium is moderately to severely dilated . The interatrial septum is intact with no evidence for an atrial septal defect or patent foramen ova le as noted on 2-D or Doppler imaging. AORTIC VALVE The aortic valve is moderately thickened but opens well. Doppler and Color Flow revealed mild aortic regurgitation. There is no significant aortic valvular stenosis. MITRAL VALVE The mitral valve is calcified but opens well. Mitral annular calcification is mild. There is no evide nce of mitral valve prolapse. There is no mitral valve stenosis. Doppler and Color-flow revealed trac e to mild mitral regurgitation. TRICUSPID VALVE The tricuspid valve is normal in structure and function. Doppler and Color Flow revealed mild tricusp id regurgitation. There is moderate pulmonary hypertension. The PA pressure was estimated at 50 mmHg. There is no tricuspid valve stenosis. PULMONIC VALVE The pulmonic valve is not well visualized. Doppler and Color Flow revealed trace pulmonic valvular re gurgitation. There is no pulmonic valvular stenosis. GREAT VESSELS The aortic root is normal in size. The ascending aorta is normal in size. The IVC is dilated and jacklyn apses >50% with inspiration. PERICARDIAL EFFUSION There is no evidence of significant pericardial effusion. Critical Notification Critical Value: No Signed by : Fabio Shepherd MD Electronically Approved : 06/23/2019 11:21:17
== END | disposition home or self-care (01) ==
LOC: ECHO 07:31
PROVIDERS: ATTEND Internal Medicine Cardiovascular Disease
DX: I08.3 Combined rheumatic disorders of mitral, aortic and tricuspid valves (principal); I48.91 Unspecified atrial fibrillation; I27.20 Pulmonary hypertension, unspecified
CPT/HCPCS: 93306

== ENCOUNTER → 2019-08-24 | Outpatient (CLI) | payer MEDICARE, OTHER ==
--- NOTE | 2019-08-24 16:14 | KCIC ---
EXAM: Renal sonogram. HISTORY: Benign prosthetic hypertrophy. Urinary retention. TECHNIQUE: Sonographic imaging of the kidneys and bladder was performed. COMPARISON: 10/25/2016. FINDINGS: The kidneys are normal in size. There is renal cortical lobulation. There is no solid or cystic renal lesion. There is no hydronephrosis. There is incidental hepatic steatosis. There is urinary bladder wall thickening. The prostate measures 4.6 cm in maximum dimension with a volume of 34 cc. The ureteral jets are not seen during the exam. There are normal renal resistive indices. The aorta an inferior vena cava are partially obscured due to bowel gas. IMPRESSION: 1. Renal cortical lobulation. This may be developmental or due to scarring. 2. Urinary bladder wall thickening. This may be due to chronic outlet obstruction or cystitis. Electronically signed by: Carolyn Loaiza MD (08/24/2019 4:10 PM) [facility]
== END | disposition home or self-care (01) ==
LOC: KCIC 15:15
PROVIDERS: ATTEND Urology
DX: N40.1 Benign prostatic hyperplasia with lower urinary tract symptoms (principal)
CPT/HCPCS: 76770

== ENCOUNTER → 2021-05-31 | Outpatient (CLI) | payer MEDICARE, OTHER ==
[~2021-05-31] MED LIST changes: -ACAR50TA PO; +ACAR50TA2 PO; -AMIO200T4 PO; +AMIO200T6 PO; +AMLO-187 PO; -AMLO10TA8 PO; -LISI-334 PO; -LISI-338 PO; +LISI-517 PO; +LISI20TA18 PO
--- NOTE | 2021-05-31 17:08 | CARD ---
MR#: [id number] Date of Study: 05/31/2021 Ordering Physician: ROMELIA ROACH, Referring Physician: ROMELIA ROACH Tech: So Robins TOM APPROVED REPORT EXAM: Two-dimensional and M-mode echocardiogram with Doppler and color Doppler. Other Information Quality : AverageHR: 80bpm Rhythm : NSR INDICATION Cardiac Disease: RISK FACTORS Hypertension Hyperlipidemia 2D DIMENSIONS RVDd4.7 (2.9-3.5cm)Left Atrium(2D)4.8 (1.6-4.0cm) IVSd1.3 (0.7-1.1cm)Aortic Root(2D)4.1 (2.0-3.7cm) LVDd5.6 (3.9-5.9cm)LVOT Diameter2.4 (1.8-2.4cm) PWd1.0 (0.7-1.1cm)LVDs4.0 (2.5-4.0cm) FS (%) 28.9 %SV83.3 ml LVEF(%)55.0 (>50%) Aortic Valve AoV Peak Jose David.191.8cm/sAoV VTI36.3cm AO Peak GR.14.7mmHgLVOT Peak Jose David.96.8cm/s AO Mean GR.7mmHgAVA (VMAX)2.37cm2 AI P 1/2 Twcs245lp Pulmonary Valve PV Peak Ubdqyrkb235.0cm/s Tricuspid Valve TR P. [place]436ue/sTR Peak Gr.53mmHg LEFT VENTRICLE The Left Ventricle is borderline dilated. There is borderline concentric left ventricular hypertrophy . The left ventricular systolic function is normal. The ejection fraction is 55%. There is normal LV segmental wall motion. RIGHT VENTRICLE The right ventricle is normal size. There is normal right ventricular wall thickness. The right ventr icular systolic function is normal. ATRIA The left atrium is moderately dilated. The right atrium is moderately dilated. The interatrial septum is intact with no evidence for an atrial septal defect or patent foramen ovale as noted on 2-D or Do ppler imaging. AORTIC VALVE The aortic valve is normal in structure and function. Doppler and Color Flow revealed mild aortic reg urgitation. There is no significant aortic valvular stenosis. MITRAL VALVE The mitral valve is normal in structure and function. There is no evidence of mitral valve prolapse. There is no mitral valve stenosis. Doppler and Color-flow revealed mild mitral regurgitation. TRICUSPID VALVE The tricuspid valve is normal in structure and function. Doppler and Color Flow revealed mild tricusp id regurgitation. Estimated PAP 60-65 mmHg. There is no tricuspid valve stenosis. GREAT VESSELS The aortic root is mildly enlarged. The ascending aorta is normal in size. The IVC is borderline dila veda and collapses <50% with inspiration. PERICARDIAL EFFUSION There is no evidence of significant pericardial effusion. Critical Notification Critical Value: No <Conclusion> The left ventricular systolic function is normal. The ejection fraction is 55%. There is normal LV segmental wall motion. Mild aortic regurgitation. Mild mitral regurgitation. Mild tricuspid regurgitation. Estimated PAP 60-65 mmHg. There is no evidence of significant pericardial effusion. Signed by : Romelia Roach, Electronically Approved : 05/31/2021 17:07:54
== END ==
LOC: ECHO 07:38
PROVIDERS: ATTEND Internal Medicine Cardiovascular Disease
DX: I08.3 Combined rheumatic disorders of mitral, aortic and tricuspid valves (principal); I48.91 Unspecified atrial fibrillation
CPT/HCPCS: 93306

== ENCOUNTER → 2021-12-05 | Outpatient (CLI) | payer MEDICARE, OTHER ==
[~2021-12-05] MED LIST changes: +AMIO200T53 PO; -AMIO200T6 PO; -LISI-517 PO; +LISI5TAB15 PO; +REGADENOSON 0.4 MG/5 ML DISP.SYRIN. IV ONE
--- NOTE | 2021-12-05 18:21 | RAD ---
MR#: [id number] Date of Study: 12/05/2021 Ordering Physician: ROMELIA ROACH, Referring Physician: JENNIFER DELGADO Tech: RT Chela Isabel) (N) APPROVED REPORT Test Type: Pharmacological Stress Nurse/Tech: ABEL SANTORO Test Indications: AFIB Cardiac History: AFIB, HTN, PPM- SEE EMR Medications: SEE EMR Medical History: SEE EMR Resting ECG: PACED Resting Heart Rate: 78 bpm Resting Blood Pressure: 162/82mmHg Pretest Chest Pain: No chest pain Nurse/Tech Notes PPM NOTED, RATE 70, LUNGS CTA, DENIED CHEST PAIN OR SHORTNESS OF BREATH. VSS. Consent: The procedure was explained to the patient in lay terms. Informed consent was witnessed. Guicho eout was entered into [employer]. History and Stress Test performed by RT Sandrita (R) (N) Pharm. Details Pharmacologic stress testing was performed using 0.4mg per 5ml of regadenoson given intravenously ove r 7-10 seconds. Stress Symptoms PT C/O INITIAL SHORTNESS OF BREATH, RESOLVED QUICKLY. VSS. PT DENIED CHEST PAIN THROUGHOUT TESTING. POST EXERCISE Reason for Termination: Infusion complete Max HR: 78 bpm Max Blood Pressure: 162/82mmHg Blood Pressure response to exercise: Normal blood pressure response during stress. Heart Rate response to exercise: WNL Chest Pain: No. Arrhythmia: . NO SIGNIFICANT CHANGES NOTED ON EKG FROM BASELINE. INTERPRETATION Stress EKG Conclusion: Non-diagnostic EKG due to pacing artifact versus LBBB Imaging Protocol IMAGE PROTOCOL: Rest Tc-99m/stress Tc-99m 1 day Rest: Stress: Viability: Radiopharm.Tc99m JjfzbadmkCc77f Sestamibi Flof96gNq 30.5mCi Duration 15min. 15min. Img Date 12/05/2021 12/05/2021 Inj-Img Xbzz59pmr. 60min. Rest Admin Site:IV - Left AntecubitalAdministrator:RT Chalo (R)(N) Stress Admin Site: IV - Left AntecubitalAdministrator: Carolyn Aquino, RT (R)(N) STRESS DATA End Diast. Vol.203.0mlAv. Heart Rate70.0bpm End Syst. Vol.110.0mlCO Index BSA0.0L/min Myocardial Fgnx989.0gEject. Whpkospl71.0% Stress Rates Pk. Fill Rate2.32EDV/secLVtime Pk. Fill 201.16msec Pk. Empty Rate2.94ESV/secLVtime Pk. Cocez182.71msec /3 Pk. Fill0.33EDV/sec Stress Scores Regional WT2.00Summed WT16.00 Regional WM1.00Summed WM17.00 LV Perfusion There is a large sized FIXED basal to distal apical perfusion defect suggestive of prior infarct in t he LAD territory. Wall Motion Mild to moderate LV dysfunction. EF 45% LV Perf. Quant 17 Seg. SSS14.00 17 Seg. SRS12.00 17 Seg. SDS2.00 Stress Defect Extent (% LAD)46.30Rest Defect Extent (% LAD)44.40Rev. Defect Extent (% LAD)0.00 Stress Defect Extent (% LCX) 3.80Rest Defect Extent (% LCX)0.00Rev. Defect Extent (% LCX)0.00 Stress Defect Extent (% RCA)15.60Rest Defect Extent (% RCA)8.90Rev. Defect Extent (% RCA)0.00 Stress Defect Extent (% SUREKHA)29.60Rest Defect Extent (% SUREKHA)25.40Rev. Defect Extent (% SUREKHA)0.20 Other Information Quality:Fair Risk Assessment: Moderate Risk Conclusion 1. Non-diagnostic EKG due to pacing artifact. Baseline atrial fibrillation 2. Large fixed anterior perfusion defect suggestive of prior infarct versus LBBB/pacing artifact 3. Moderate LV dysfunction. EF 40-45% 4. Moderate risk for future CV events. Signed by : Deangelo Santiago, Electronically Approved : 12/05/2021 18:21:04
== END ==
LOC: NM 07:35
PROVIDERS: ATTEND Internal Medicine Cardiovascular Disease
DX: I48.91 Unspecified atrial fibrillation (principal); I51.9 Heart disease, unspecified
CPT/HCPCS: 78452; 93017; A9500; J2785